=== PATIENT | male | born 1980 | race Caucasian/White ===

== ENCOUNTER → 2018-03-08 14:47 | Outpatient (CLI) | payer MEDICAID, SELFPAY ==
--- NOTE | 2018-03-08 14:49 | XR_ITS ---
XR knee RT 4V Comparison: No previous History: Pain right knee. Technique: Weightbearing AP, lateral and Calles views were performed as well as oblique. Findings: No fracture nor dislocation. Bones are well mineralized. Joint spaces fairly well maintained on this weightbearing study the medial compartment is of adequate with but is slightly less height than lateral compartment. There is some scant early sharpening at the lateral margin of the lateral femoral condyle reflecting some extremely minor likely insignificant early degenerative changes Patellofemoral joint appear satisfactory on this somewhat distorted sunrise view of the may be some very slight dorsal tilt of the patella but no displacement satisfactory patellofemoral articulation. No appreciable joint effusion.. No soft tissue findings. Subtle cortical undulation at the lateral aspect of the proximal tibial shaft reflecting insertions of the intraosseous ligament between tibia and fibula. With this there is upper normal bone density at the medial aspect of proximal metaphysis of tibia but with no significant appearing findings here. Impression: Right knee intact No fracture nor dislocation. No joint effusion Minor comments intact.
== END ==
PROVIDERS: PCP Physician Assistant; Visit Provider Physician Assistant
DX: M25.561 Pain in right knee (principal)
CPT/HCPCS: 73564

== ENCOUNTER → 2018-07-19 14:32 | Outpatient (REF) | payer MEDICAID, SELFPAY ==
[2018-07-19 19:12] LABS: Basophils % 0.5 % (0.1-2.0); Eosinophils # 0.5 K/mm3 (0.0-0.4); Eosinophils % 6.1 % (0.1-12.0); Hematocrit 42.7 % (42.0-52.0); Hemoglobin 14.3 g/dL (14.1-18.0); Lymphocytes # 2.3 K/mm3 (0.7-4.5); Lymphocytes % 29.8 K/mm3 (10-50); Mean Corpuscular HGB Conc 33.5 g/dL (31.8-35.4); Mean Corpuscular Hemoglobin 31.8 pg (27.0-31.2); Mean Corpuscular Volume 94.9 fl (80-94); Mean Platelet Volume 8.5 fl (7.4-10.4); Monocytes # 0.3 K/mm3 (0.1-1.0); Monocytes % 4.5 % (1.7-9.3); Neutrophils # 4.4 K/mm3 (1.8-7.8); Neutrophils % 59.1 % (37.0-80.0); Platelet Count 239 K/mm3 (142-424); Red Cell Distribution Width 14.3 % (11.5-17.5); White Blood Count 7.5 K/mm3 (4.8-10.8)
[2018-07-19 19:33] LABS: Alanine Aminotransferase 17 U/L (12-78); Albumin Level 3.6 gm/dL (3.4-5.0); Alkaline Phosphatase 70 U/L (46-116); Anion Gap 11.7 mEq/L (5-15); Aspartate Amino Transferase 19 U/L (15-37); Bilirubin,Total 0.3 mg/dL (0.2-1.0); Blood Urea Nitrogen 9 mg/dL (7-18); Calcium 8.7 mg/dL (8.5-10.1); Carbon Dioxide 29 mmol/L (21.0-32.0); Chloride 107 mmol/L (98-107); Chol/HDL Ratio 3.5 (1-3.5); Cholesterol 111 mg/dL (140-200); Estimated Glomerular Filt Rate 93 ml/min (>60); GFR (African American) 113 ML/MIN (>60); Globulin 3.5 gm/dl (1.3-3.2); Glucose 104 mg/dL (74-106); HDL Cholesterol 32 mg/dL (27-67); LDL Cholesterol 31 mg/dL (0-130); Potassium 3.7 mmoL/L (3.5-5.1); Sodium 144 mmol/L (136-145); T4 (Thyroxine) 8.5 ug/dl (4.7-13.3); Thyroid Stimulating Hormone 0.79 uIU/ml (0.358-3.740); Total Protein,Serum 7.1 gm/dL (6.4-8.2); Triglycerides 238 mg/dL (30-200); VLDL Cholesterol 48 mg/dL (0-40)
[2018-07-19 19:43] LABS: Hemoglobin A1C 5.8 % (0.0-7.0)
[2018-07-21 12:41] LABS: Vitamin D 25 Hydroxy 20.9 ng/mL (30.0-100.0)
== END ==
LOC: LAB 14:32
PROVIDERS: Visit Provider Physician Assistant
DX: R73.09 Other abnormal glucose (principal)
CPT/HCPCS: 80053; 80061; 82652; 83036; 84436; 84443; 85025

== ENCOUNTER → 2020-09-10 18:02 | Outpatient (CLI) | payer MEDICAID, SELFPAY ==
[2020-09-10 19:29] LABS: Basophils % 0.2 % (0.1-2.0); Eosinophils # 0.4 K/mm3 (0.0-0.4); Eosinophils % 3.3 % (0.1-12.0); Hematocrit 48.9 % (42.0-52.0); Hemoglobin 16.4 g/dL (14.1-18.0); Lymphocytes % 19.1 % (10-50); Mean Corpuscular HGB Conc 33.5 g/dL (31.8-35.4); Mean Corpuscular Volume 95.7 fl (80-94); Mean Platelet Volume 9.4 fl (7.4-10.4); Monocytes # 0.5 K/mm3 (0.1-1.0); Monocytes % 4.7 % (1.7-9.3); Neutrophils # 7.8 K/mm3 (1.8-7.8); Neutrophils % 72.7 % (37.0-80.0); Platelet Count 232 K/mm3 (142-424); Red Cell Distribution Width 14.7 % (11.5-17.5); White Blood Count 10.7 K/mm3 (4.8-10.8)
[2020-09-10 19:39] LABS: Alanine Aminotransferase 10 U/L (12-78); Albumin Level 4.1 g/dl (3.5-5.0); Albumin/Globulin Ratio 1.3 (1.1-1.8); Alkaline Phosphatase 69 U/L (38-126); Anion Gap 12.8 mEq/L (5-15); Aspartate Amino Transferase 26 U/L (17-59); Bilirubin,Total 0.4 mg/dl (0.2-1.3); Blood Urea Nitrogen 14 mg/dl (9-20); Calcium 9.5 mg/dl (8.4-10.2); Carbon Dioxide 28 mmol/L (22.0-30.0); Chloride 102 mmol/L (98-107); Chol/HDL Ratio 4.2 (1-3.5); Cholesterol 131 mg/dl (140-200); Estimated Glomerular Filt Rate 106 ml/min (>60); GFR (African American) 128 ML/MIN (>60); Globulin 3.2 g/dL (1.3-3.2); Glucose 108 mg/dl (74-100); HDL Cholesterol 31 mg/dl (40-60); Potassium 3.8 mmoL/L (3.5-5.1); Sodium 139 mmol/L (136-145); Total Protein,Serum 7.3 g/dl (6.3-8.2); Triglycerides 189 mg/dl (30-150); VLDL Cholesterol 38 mg/dL (0-40)
[2020-09-10 19:51] LABS: Direct LDL Cholesterol 74.07 mg/dL (100-129)
[2020-09-10 19:57] LABS: T4 (Thyroxine) 8.4 ug/dl (5.53-11.0)
[2020-09-10 20:10] LABS: Thyroid Stimulating Hormone 0.61 uIU/mL (0.465-4.68)
[2020-09-10 20:54] LABS: Vitamin B12 > 1000 pg/mL (239-931)
[2020-09-10 21:27] LABS: Hemoglobin A1C 5.3 % (4.0-6.0)
== END ==
PROVIDERS: Visit Provider Physician Assistant
DX: G62.9 Polyneuropathy, unspecified (principal); I10 Essential (primary) hypertension; E53.8 Deficiency of other specified B group vitamins; R35.8 Other polyuria; Z79.899 Other long term (current) drug therapy
CPT/HCPCS: 80053; 80061; 82607; 83036; 84436; 84443; 85025

== ENCOUNTER → 2021-12-19 16:00 | Outpatient (CLI) | payer MEDICAID, SELFPAY ==
[2021-12-19 21:50] LABS: Phencyclidine Screen,Urine Negative ng/ml (<25)
[2021-12-19 21:57] LABS: Amphetamine/Metha Screen,Urine Negative ng/ml (<1000); Barbiturates Screen,Urine Negative ng/ml (<200)
[2021-12-19 21:58] LABS: Benzodiazepines Screen,Urine Negative ng/ml (<200)
[2021-12-19 21:59] LABS: Cannabinoid Screen,Urine Negative ng/ml (<50)
[2021-12-19 22:01] LABS: Methadone Screen,Urine Negative ng/ml (<300)
[2021-12-19 22:02] LABS: Opiate Screen,Urine Negative ng/ml (<300)
[2021-12-19 22:03] LABS: Cocaine Screen,Urine Negative ng/ml (<300)
== END ==
PROVIDERS: Visit Provider Nurse Practitioner Family
DX: Z79.899 Other long term (current) drug therapy (principal)
CPT/HCPCS: 80305

== ENCOUNTER 2022-06-15 17:44 | Emergency (ER) | payer MEDICAID, SELFPAY ==
[2022-06-15 18:40] VITALS: BP 168/104; PULSE 85; RESP 19; TEMP 36.7; O2SAT 97; BMI 52.9
--- NOTE | 2022-06-15 19:07 | HMH.EDUTC ---
[facility] Disposition Clinical Impression: Sinusitis Qualifiers: Sinusitis location: unspecified location Chronicity: unspecified Qualified Code(s): J32.9 - Chronic sinusitis, unspecified Disposition: Home, Self-Care Condition on Discharge: Good Instructions: Sinusitis, DI for Sinusitis, Prednisone Additional Instructions: *Monitor Temp, Over the counter Motrin or Tylenol as directed/as needed Tylenol every 4 hours and Motrin every 6 hours (as long as your family doctor has told you that you can take it) for fever or pain. and straight to ER if unable to lower temp less than 101.0 after medication given *Warm salt water gargles may help to soothe the throat *Throat Lozenges *Warm fluids like tea with honey may help to soothe the throat *Sleep elevated *Humidifier/Vaporizer Take medication as prescribed Follow up IMMEDIATELY for new or worsening symptoms or no Noticeable improvement over the next 48-72 hours. 911 for difficulty breathing or swallowing Prescriptions: Amoxicillin/Potassium Clav [Amox-Clav 875-125 mg Tablet] 1 tab PO BID #14 tab Transmission Status: Received by [facility] predniSONE [Prednisone 20mg Tab] 20 mg PO BID 5 Days #10 tab Transmission Status: [facility] Referrals: Barbara Franklin PA [Primary Care Provider] - As needed Time of Disposition: 19:20 Medical Decision Making - Alejandro Inquiry Pt receiving controlled substance: No Alejandro was queried for this patient: No Vital Signs: 06/15/22 18:40 06/15/22 19:34 Temperature 98.1 F 98.1 F Temperature Source Oral Pulse Rate 85 Pulse Rate [Right Brachial] 85 Respiratory Rate 19 19 Blood Pressure 168/104 H Blood Pressure [Right Arm] 168/104 H Blood Pressure Mean [Right Arm] 125 Blood Pressure Source [Right Arm] Automatic Cuff Blood Pressure Position [Right Arm] Sitting 02 Sat by Pulse Oximetry 97 Oxygen Delivery Method Room Air Orders (Tests/Meds): ED MEDICATIONS Discontinued Medications Generic Name Dose Route Start Last Admin Trade Name Freq PRN Reason Stop Dose Admin Amoxicillin/Clavulanate Potassium 1 each 06/15/22 19:17 06/15/22 19:31 Amoxicillin/Pot Clavulan 500mg Tablet PO 06/15/22 19:18 1 each ONCE ONE Administration Methylprednisolone Sodium Succinate 125 mg 06/15/22 19:17 06/15/22 19:31 Methylprednisolone Sod Succ 125mg Vial IM 06/15/22 19:18 125 mg ONCE ONE Administration [facility] HPI - General Stated complaint: earache,larry Time Seen by Provider: 06/15/22 19:07 Mode of Arrival: Ambulatory Source of Information: Patient Limitations: No Limitations Description of Symptoms (Recalled from Triage Doc. by RN): PATIENT C/O CONGESTION AND EAR PAIN X 2 DAYS HEENT Symptoms (Recalled from RN notes): Yes Resp Symptoms (Recalled from RN notes): No Skin Symptoms (Recalled from RN notes): No MS Symptoms (Recalled from RN notes): No Functional Status (Recalled from RN notes): WNL - History of Present Illness Provider Complaint: Patient states that he has been having sinus pain and pressure and pain and pressure in both ears for about week or more and keeps getting worse States that today pressure was behind his eyes and hurting worse States that he is suppose to be seeing ENT for nasal polyps and thinks they are inflammed causing him sinus infection - Related Data Home Medications Medication Instructions Recorded Confirmed epinephrine 0.3 mg/0.3 mL 0.3 ml IM PRN each 09/19/21 03/20/22 injection, auto-injector azithromycin 250 mg tablet 250 mg PO tab 03/20/22 03/20/22 Previous Rx's Medication Instructions Recorded azelastine 0.05 % eye drops 1 drp OPHTHALMIC BID #6 ml 01/22/22 fluticasone propionate 50 See Rx Instructions .ROUTE 01/22/22 mcg/actuation nasal .COMPLEX #32 gram spray,suspension montelukast 10 mg tablet 10 mg PO HS #90 tab 01/22/22 omeprazole 40 mg capsule,delayed 40 mg PO DAILY #90 cap 01/22/22 release albuterol
[2022-06-15 19:34] VITALS: BP 168/104; PULSE 85; RESP 19; TEMP 36.7; O2SAT 97
== END 2022-06-15 19:51 | disposition home or self-care (01) ==
PROVIDERS: Emergency Provider Nurse Practitioner; PCP Physician Assistant
DX: J32.9 Chronic sinusitis, unspecified (principal)
CPT/HCPCS: 99212; G0463

== ENCOUNTER → 2022-06-25 19:07 | Outpatient (CLI) | payer MEDICAID, SELFPAY ==
[2022-06-25 15:19] LABS: Basophils # 0.1 K/mm3 (0-0.2); Basophils % 0.6 % (0.1-2.0); Eosinophils # 0.4 K/mm3 (0.0-0.4); Eosinophils % 4.7 % (0.1-12.0); Hematocrit 46.9 % (42.0-52.0); Hemoglobin 14.4 g/dL (14.1-18.0); Lymphocytes # 2.1 K/mm3 (0.7-4.5); Mean Corpuscular HGB Conc 30.8 g/dL (31.8-35.4); Mean Corpuscular Hemoglobin 31.7 pg (27.0-31.2); Mean Platelet Volume 9.2 fl (7.4-10.4); Monocytes # 0.5 K/mm3 (0.1-1.0); Monocytes % 6.1 % (1.7-9.3); Neutrophils # 5.9 K/mm3 (1.8-7.8); Neutrophils % 65.7 % (37.0-80.0); Platelet Count 204 K/mm3 (142-424); Red Blood Count 4.55 M/mm3 (4.60-6.20); Red Cell Distribution Width 14.7 % (11.5-17.5)
[2022-06-25 15:27] LABS: Alanine Aminotransferase 15 U/L (12-78); Albumin Level 3.5 g/dl (3.5-5.0); Albumin/Globulin Ratio 1.3 (1.1-1.8); Alkaline Phosphatase 65 U/L (38-126); Anion Gap 7.7 mEq/L (5-15); Aspartate Amino Transferase 25 U/L (17-59); Blood Urea Nitrogen 6 mg/dl (9-20); Calcium 8.3 mg/dl (8.4-10.2); Carbon Dioxide 28 mmol/L (22.0-30.0); Chloride 106 mmol/L (98-107); Chol/HDL Ratio 3.5 (1-3.5); Cholesterol 109 mg/dl (140-200); Estimated Glomerular Filt Rate 105 ml/min (>60); GFR (African American) 127 ML/MIN (>60); Globulin 2.7 g/dL (1.3-3.2); Glucose 102 mg/dl (74-100); HDL Cholesterol 31 mg/dl (40-60); Potassium 3.7 mmoL/L (3.5-5.1); Sodium 138 mmol/L (136-145); Total Protein,Serum 6.2 g/dl (6.3-8.2); Triglycerides 120 mg/dl (30-150); VLDL Cholesterol 24 mg/dL (0-40)
[2022-06-25 15:32] LABS: Bilirubin,Total 0.1 mg/dl (0.2-1.3)
[2022-06-25 15:45] LABS: Hemoglobin A1C 5.4 % (4.0-6.0)
[2022-06-27 08:22] LABS: Direct LDL Cholesterol 54 mg/dL (100-129)
== END ==
PROVIDERS: PCP Nurse Practitioner Family; Visit Provider Nurse Practitioner Family
DX: I10 Essential (primary) hypertension (principal); E78.5 Hyperlipidemia, unspecified; R53.83 Other fatigue; E11.9 Type 2 diabetes mellitus without complications; Z79.84 Long term (current) use of oral hypoglycemic drugs
CPT/HCPCS: 80053; 80061; 83036; 84443; 85025

== ENCOUNTER 2022-09-07 16:48 | Emergency (ER) | payer MEDICAID, SELFPAY ==
[2022-09-07 17:20] VITALS: BP 158/95; PULSE 94; RESP 18; TEMP 36.9; O2SAT 99; BMI 55.7
--- NOTE | 2022-09-07 18:00 | EXP.UTC ---
Discharge Plan Disposition Patient Disposition: Home, Self-Care Prescriptions Prescriptions: No Action epinephrine 0.3 mg/0.3 mL auto-injector 0.3 ml IM PRN Label Comments: USE DIRECTED omeprazole 40 mg capsule,delayed release(DR/EC) 40 mg PO DAILY Qty: 90 3RF Rx Instructions: swallow whole; do not crush, chew, dissolve, cut, break montelukast [Singulair] 10 mg tablet 10 mg PO HS Qty: 90 3RF fluticasone propionate 50 mcg/actuation spray,suspension See Rx Instructions .ROUTE .COMPLEX Qty: 32 0RF Dose Instruction: SPRAY 1 SPRAY IN EACH NOSTRIL ONCE DAILY Rx Instructions: SPRAY 1 SPRAY IN EACH NOSTRIL ONCE DAILY amlodipine-benazepril [Lotrel] 10-40 mg capsule 1 cap PO DAILY Qty: 90 3RF gabapentin 300 mg capsule 300 mg PO TID 30 Days Qty: 90 2RF amoxicillin 500 mg capsule 500 mg PO TID Label Comments: TAKE 1 CAPSULE BY MOUTH EVERY 8 HOURS FOR 7 DAYS cefuroxime axetil 500 mg tablet 500 mg PO BID Qty: 20 0RF prednisone 20 mg tablet 20 mg PO BID Qty: 10 0RF Rx Instructions: administer with food or milk pseudoephedrine HCl [Sudafed 12 Hour] 120 mg tablet extended release 120 mg PO Q12H Qty: 20 0RF polyethylene glycol 3350 [ClearLax] 17 gram/dose powder See Rx Instructions .ROUTE .COMPLEX Qty: 510 1RF Dose Instruction: MIX 17 GRAMS OF POWDER IN 8 OUNCES OF WATER OR JUICE AND DRINK ONCE DAILY Rx Instructions: MIX 17 GRAMS OF POWDER IN 8 OUNCES OF WATER OR JUICE AND DRINK ONCE DAILY amitriptyline 10 mg tablet See Rx Instructions .ROUTE .COMPLEX Qty: 90 3RF Dose Instruction: TAKE 1 TABLET BY MOUTH AT BEDTIME Rx Instructions: TAKE 1 TABLET BY MOUTH AT BEDTIME azelastine 205.5 mcg (0.15 %) spray,non-aerosol See Rx Instructions .ROUTE .COMPLEX Qty: 30 5RF Dose Instruction: USE 1 SPRAY IN EACH NOSTRIL TWICE DAILY Rx Instructions: USE 1 SPRAY IN EACH NOSTRIL TWICE DAILY loratadine [Allergy Relief (loratadine)] 10 mg tablet See Rx Instructions .ROUTE .COMPLEX Qty: 90 3RF Dose Instruction: TAKE 1 TABLET BY MOUTH ONCE DAILY Rx Instructions: TAKE 1 TABLET BY MOUTH ONCE DAILY naproxen 500 mg tablet 500 mg PO BID PRN (Reason: pain) Qty: 60 0RF albuterol sulfate [ProAir HFA] 90 mcg/actuation HFA aerosol inhaler See Rx Instructions .ROUTE .COMPLEX Qty: 25.5 0RF Dose Instruction: INHALE 2 PUFFS BY MOUTH EVERY 4 TO 6 HOURS NEEDED FOR SHORTNESS OF BREATH OR WHEEZING Rx Instructions: INHALE 2 PUFFS BY MOUTH EVERY 4 TO 6 HOURS NEEDED FOR SHORTNESS OF BREATH OR WHEEZING Ozempic 0.25 mg or 0.5 mg(2 mg/1.5 mL) pen injector See Rx Instructions .ROUTE .COMPLEX Qty: 1.5 2RF Dose Instruction: INJECT 0.5MG UNDER THE SKIN ONCE WEEKLY Rx Instructions: INJECT 0.5MG UNDER THE SKIN ONCE WEEKLY Referrals Follow up/Referrals: Barbara Franklin PA [Primary Care Provider] - See instructions Activity Restrictions/Add. Instructions Additional Instructions/Restrictions: continue antibiotic, patient to take as ordered for a full length of time even if you feel better. Sinus infections do not get better overnight. It may take 2-3 days to notice much improvement so be sure to use conservative measures as discussed for symptoms. Flonase 1 spray each nostril daily to help with nasal congestion, sinus and ear pressure/information Increase fluids Humidifier/vaporizer as needed Tylenol and ibuprofen as needed for fever or pain. If symptoms do not improve or get worse return or be seen in the ER Follow-up with primary care this week Clinical Impressions Clinical Impression: Sinusitis Instructions Patient Instructions: DI for Sinusitis, Sinusitis Discharge ED Provider: Edith ([facility])Elidia [facility] [place] HPI General Stated complaint: larry, SUNSHINE Mode of Arrival: Ambulatory Source of Information: Patient Limitations: No Limitations Time Seen by
[2022-09-07 18:15] VITALS: BP 158/95; PULSE 94; RESP 18; TEMP 36.9; O2SAT 99
== END 2022-09-07 18:18 | disposition home or self-care (01) ==
PROVIDERS: Emergency Provider Nurse Practitioner Family; PCP Physician Assistant
DX: J32.9 Chronic sinusitis, unspecified (principal)
CPT/HCPCS: 96372; 99212; G0463

== ENCOUNTER → 2022-12-30 15:25 | Outpatient (CLI) | payer MEDICAID, SELFPAY ==
[2022-12-30 15:28] LABS: Basophils # 0.1 K/mm3 (0-0.2); Basophils % 0.7 % (0.1-2.0); Eosinophils # 0.5 K/mm3 (0.0-0.4); Eosinophils % 4.1 % (0.1-12.0); Hematocrit 42.4 % (42.0-52.0); Hemoglobin 14.3 g/dL (14.1-18.0); Mean Corpuscular HGB Conc 33.7 g/dL (31.8-35.4); Mean Corpuscular Hemoglobin 32.3 pg (27.0-31.2); Mean Corpuscular Volume 95.8 fl (80-94); Mean Platelet Volume 9.5 fl (7.4-10.4); Monocytes # 0.6 K/mm3 (0.1-1.0); Monocytes % 4.9 % (1.7-9.3); Neutrophils # 8.1 K/mm3 (1.8-7.8); Neutrophils % 72.3 % (37.0-80.0); Platelet Count 225 K/mm3 (142-424); Red Blood Count 4.42 M/mm3 (4.60-6.20); Red Cell Distribution Width 14.5 % (11.5-17.5); White Blood Count 11.1 K/mm3 (4.8-10.8)
[2022-12-30 16:04] LABS: Alanine Aminotransferase 15 U/L (12-78); Albumin Level 3.8 g/dl (3.5-5.0); Albumin/Globulin Ratio 1.3 (1.1-1.8); Alkaline Phosphatase 58 U/L (38-126); Anion Gap 5.6 mEq/L (5-15); Aspartate Amino Transferase 25 U/L (17-59); Bilirubin,Total 0.5 mg/dl (0.2-1.3); Blood Urea Nitrogen 10 mg/dl (9-20); Calcium 8.4 mg/dl (8.4-10.2); Carbon Dioxide 26 mmol/L (22.0-30.0); Chloride 109 mmol/L (98-107); Estimated Glomerular Filt Rate 105 ml/min (>60); GFR (African American) 127 ML/MIN (>60); Globulin 2.9 g/dL (1.3-3.2); Glucose 125 mg/dl (74-100); Potassium 3.6 mmoL/L (3.5-5.1); Sodium 137 mmol/L (136-145); Total Protein,Serum 6.7 g/dl (6.3-8.2)
[2022-12-30 16:10] LABS: C-Reactive Protein 7.3 mg/L (0-4)
[2022-12-30 16:27] LABS: 25-OH Vitamin D, Total 12.8 ng/mL (30-100)
[2022-12-30 16:38] LABS: Thyroid Stimulating Hormone 0.29 uIU/mL (0.465-4.68)
[2022-12-30 16:57] LABS: Vitamin B12 324 pg/mL (239-931)
[2022-12-30 18:10] LABS: Erythrocyte Sedimentation Rate 25 mm/hr (0-15)
[2022-12-30 21:13] LABS: Hemoglobin A1C 5.3 % (4.0-6.0)
[2023-01-01 07:32] LABS: RA Latex Turbid. <10.0 IU/mL (<14.0)
[2023-01-01 14:14] LABS: Anti-Centromere B Antibodies <0.2 AI (0.0-0.9); Anti-Cyclic Citrullinated Pept 4 units (0-19); Anti-DNA (DS) Ab Qn <1 IU/mL (0-9); Anti-Jo-1 <0.2 AI (0.0-0.9); Anti-Smith Antibody <0.2 AI (0.0-0.9); Antichromatin Antibodies <0.2 AI (0.0-0.9); Antiscleroderma-70 Antibodies <0.2 AI (0.0-0.9); RNP Antibodies 0.2 AI (0.0-0.9); Sjogren's Anti-SS-A 0.2 AI (0.0-0.9); Sjogren's Anti-SS-B <0.2 AI (0.0-0.9)
== END ==
PROVIDERS: PCP Physician Assistant; Visit Provider Physician Assistant
DX: M25.50 Pain in unspecified joint (principal); R73.09 Other abnormal glucose; E55.9 Vitamin D deficiency, unspecified
CPT/HCPCS: 80053; 82306; 82607; 83036; 84443; 85025; 85651; 86140; 86200; 86225; 86235; 86431

== ENCOUNTER → 2023-08-20 08:27 | Outpatient (CLI) | payer MEDICAID, SELFPAY ==
--- NOTE | 2023-08-20 08:31 | XR_ITS ---
FINAL REPORT CLINICAL HISTORY: lt knee pain COMPARISON: None FINDINGS: Three views of the left knee reveal no evidence of fracture or dislocation. The bony alignment is normal. There is mild degenerative change present, as well as mild narrowing of the medial compartment of the knee. There is no evidence of joint effusion. No localized soft tissue abnormality is seen. IMPRESSION: Mild degenerative change with mild narrowing of the medial compartment. No acute bony abnormality identified. Reviewed, Interpreted and Dictated by Antonino Marquez III, MD Transcribed by Kathrin Colvin Authenticated and . [facility]
--- NOTE | 2023-08-20 08:31 | XR_ITS ---
FINAL REPORT CLINICAL HISTORY: Rt Knee pain COMPARISON: None FINDINGS: Three views of the right knee reveal no evidence of fracture or dislocation. The bony alignment is normal. There is mild degenerative change with mild narrowing of the medial compartment of the knee. There is no evidence of joint effusion. No localized soft tissue abnormality is identified. IMPRESSION: Mild degenerative change with mild narrowing of the medial compartment of the knee. No acute bony abnormality identified. Reviewed, Interpreted and Dictated by Antonino Marquez III, MD Transcribed by Kathrin Colvin Authenticated and [facility]
== END ==
PROVIDERS: PCP Physician Assistant; Visit Provider Orthopaedic Surgery
DX: M25.561 Pain in right knee (principal); M25.562 Pain in left knee
CPT/HCPCS: 73562

== ENCOUNTER → 2023-10-13 15:59 | Outpatient (CLI) | payer MEDICAID, SELFPAY ==
--- NOTE | 2023-10-13 16:00 | MR_ITS ---
FINAL REPORT CLINICAL HISTORY: lt knee pain. KNEE INSTABILITY COMPARISON: None FINDINGS: Multiplanar MR imaging of the left knee was performed without contrast. The lateral menisci is intact without evidence of meniscal tear. There is medial subluxation of the body of the medial meniscus without a discrete tear visualized. The anterior and posterior cruciate ligaments are intact. The medial collateral ligament and lateral ligamentous complex are intact. Patellar tendinitis is identified. There is no evidence of fracture. There is moderate medial compartment osteoarthritis with moderate chondromalacia. A moderate joint effusion is seen. The musculature is intact. A small popliteal cyst is present. 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 A moderate joint effusion is present as well. Medial subluxation of the body of the medial meniscus without a discrete tear. Patellar tendinitis. Reviewed, Interpreted and Dictated by Antonino Marquez III, MD Transcribed by Kathrin Colvin Authenticated and . [facility]
== END ==
PROVIDERS: PCP Physician Assistant; Visit Provider Orthopaedic Surgery
DX: M17.12 Unilateral primary osteoarthritis, left knee (principal)
CPT/HCPCS: 73721

== ENCOUNTER 2023-11-22 15:44 | Emergency (ER) | payer MEDICAID, SELFPAY ==
[2023-11-22 16:00] VITALS: BP 138/81; PULSE 100; RESP 18; TEMP 37.1; O2SAT 97; BMI 57.6
--- NOTE | 2023-11-22 16:04 | ED_ITS ---
Discharge Plan Prescriptions Prescriptions: No Action epinephrine 0.3 mg/0.3 mL auto-injector 0.3 ml IM PRN Patient Comments: USE DIRECTED diclofenac sodium 75 mg tablet,delayed release (DR/EC) 75 mg PO BID Qty: 60 2RF loratadine [Allergy Relief (loratadine)] 10 mg tablet See Rx Instructions .ROUTE .COMPLEX Qty: 90 3RF Dose Instruction: TAKE 1 TABLET BY MOUTH ONCE DAILY Rx Instructions: TAKE 1 TABLET BY MOUTH ONCE DAILY ergocalciferol (vitamin D2) 1,250 mcg (50,000 unit) capsule 1,250 mcg PO WEEKLY Qty: 14 3RF cholecalciferol (vitamin D3) 50 mcg (2,000 unit) capsule 50 mcg PO DAILY Qty: 90 3RF albuterol sulfate [Ventolin HFA] 90 mcg/actuation HFA aerosol inhaler See Rx Instructions .ROUTE .COMPLEX Qty: 27 2RF Dose Instruction: INHALE 2 PUFFS BY MOUTH EVERY 4 TO 6 HOURS NEEDED FOR SHORTNESS OF BREATH OR WHEEZING Rx Instructions: INHALE 2 PUFFS BY MOUTH EVERY 4 TO 6 HOURS NEEDED FOR SHORTNESS OF BREATH OR WHEEZING fluticasone propionate 50 mcg/actuation spray,suspension See Rx Instructions .ROUTE .COMPLEX Qty: 32 2RF Dose Instruction: INSTILL 1 SPRAY IN EACH NOSTRIL ONCE DAILY Rx Instructions: INSTILL 1 SPRAY IN EACH NOSTRIL ONCE DAILY benazepril 40 mg tablet See Rx Instructions .ROUTE .COMPLEX Qty: 30 1RF Dose Instruction: TAKE 1 TABLET BY MOUTH ONCE DAILY Rx Instructions: TAKE 1 TABLET BY MOUTH ONCE DAILY amitriptyline 25 mg tablet 25 mg PO DAILY Qty: 90 1RF azelastine 137 mcg (0.1 %) aerosol,spray See Rx Instructions .ROUTE .COMPLEX Qty: 30 0RF Dose Instruction: INSTILL 1 SPRAY IN EACH NOSTRIL TWICE A DAY. Rx Instructions: INSTILL 1 SPRAY IN EACH NOSTRIL TWICE A DAY. Ozempic 0.25 mg or 0.5 mg (2 mg/3 mL) pen injector 0.5 mg SQ WEEKLY Qty: 3 3RF hydrochlorothiazide 25 mg tablet See Rx Instructions .ROUTE .COMPLEX Qty: 90 0RF Dose Instruction: TAKE 1 TABLET BY MOUTH EVERY MORNING Rx Instructions: TAKE 1 TABLET BY MOUTH EVERY MORNING omeprazole 40 mg capsule,delayed release(DR/EC) See Rx Instructions .ROUTE .COMPLEX Qty: 90 1RF Dose Instruction: TAKE 1 CAPSULE BY MOUTH ONCE DAILY Rx Instructions: TAKE 1 CAPSULE BY MOUTH ONCE DAILY montelukast 10 mg tablet See Rx Instructions .ROUTE .COMPLEX Qty: 90 1RF Dose Instruction: TAKE 1 TABLET BY MOUTH AT BEDTIME Rx Instructions: TAKE 1 TABLET BY MOUTH AT BEDTIME Ubrelvy 100 mg tablet 100 mg PO ONCE PRN (Reason: migraine) Qty: 16 0RF gabapentin 300 mg capsule 300 mg PO QID 30 Days Qty: 120 2RF Referrals Follow up/Referrals: Barbara Franklin PA [Primary Care Provider] - See instructions Discharge ED Provider: Geoffrey Ordonez [facility] [place] HPI General Stated complaint: ear ache, larry, SUNSHINE, body ache Time Seen by Provider: 11/22/23 16:04 History of Present Illness Provider Complaint: He states that for the past 1 week he has had worsening sinus congestion, sinus pressure, bilateral ear pain, drainage and a cough. He denies significant chest congestion. He denies fever/chills/body aches. Related Data Home Medications Medication Instructions Recorded Confirmed epinephrine 0.3 mg/0.3 mL 0.3 ml IM PRN 09/19/21 10/22/23 injection, auto-injector Previous Rx's Medication Instructions Recorded cholecalciferol (vitamin D3) 50 50 mcg PO DAILY #90 caps 01/01/23 mcg (2,000 unit) capsule ergocalciferol (vitamin D2) 1,250 1,250 mcg PO WEEKLY #14 caps 01/01/23 mcg (50,000 unit) capsule loratadine 10 mg tablet (Allergy See Rx Instructions .Route 02/17/23 Relief (loratadine)) .COMPLEX #90 tabs albuterol sulfate 90 mcg/actuation See Rx Instructions .Route 06/02/23 aerosol inhaler (Ventolin HFA) .COMPLEX #27 grams fluticasone propionate 50 See Rx Instructions .Route 06/02/23 mcg/actuation nasal .COMPLEX #32 grams spray,suspension benazepril 40 mg tablet See Rx Instructions .Route 06/22/23 .COMPLEX #30 tabs amitriptyline 25 mg tablet 25 mg PO DAILY #90 tabs 07/22/23 azelastine 137 mcg (0.1 %) nasal See Rx Instructions .Route 07/29/23 spray aerosol .COMPLEX #30 mL diclofenac sodium 75 mg 75 mg PO BID #60 tabs 09/07/23 tablet,delayed release hydrochlorothiazide 25 mg tablet See Rx Instructions .Route 09/14/23 .COMPLEX #90 tabs semaglutide 0.25 mg or 0.5 mg (2 0.5 mg (0.736 mL) SQ WEEKLY #3 mL 09/14/23 mg/3 mL) subcutaneous pen injector (Ozempic) montelukast 10 mg tablet See Rx Instructions .Route 09/24/23 .COMPLEX #90 tabs omeprazole 40 mg capsule,delayed See Rx Instructions .Route 09/24/23 release .COMPLEX #90 caps ubrogepant 100 mg tablet (Ubrelvy) 100 mg PO ONCE PRN migraine #16 09/28/23 tabs gabapentin 300 mg capsule 300 mg PO QID 30 days #120 caps 10/28/23 Allergies Allergy/AdvReac Type Severity Reaction Status Date / Time No Known Allergies Allergy Verified 11/22/23 16:11 [facility] Disclaimer: The information contained in this section may have been updated after the musa ent was seen, as this information can be updated by other users. Medical History Anxiety Cardiac arrhythmia Depression Hypertension Knee pain, right Neuropathy MELE (obstructive sleep apnea) Vitamin B12 deficiency Family History Father Cancer Social History Smoking Status: Former smoker tobacco type: cigarettes packs per day: 1 alcohol intake: never substance use type: denies use current occupational status: other Travel in the last 8 weeks: None current occupation: None ROS Obtained: Yes All systems reviewed & no additional complaints except as documented Constitutional Constitutional: Reports poor appetite Eyes Eyes: Reports system reviewed and no additional complaints, except as documented ENT Ears, Nose, Mouth, and Throat: Reports as per HPI Cardiovascular Cardiovascular: Reports system reviewed and no additional complaints, except as documented and Denies chest pain Respiratory Respiratory: Denies shortness of breath, Denies chest congestion, Reports cough, Denies stridor and Denies wheezing Gastrointestinal Gastrointestingal: Reports system reviewed and no additional complaints, except as documented; Denies abdominal pain, diarrhea or vomiting Musculoskeletal Musculoskeletal: Reports system reviewed and no additional complaints, except as documented and Denies arthralgias Integumentary/Breasts Skin/Breast: Reports system reviewed and no additional complaints, except as documented and Denies rash Neurologic Neurologic: Denies paresthesias Allergic/Immunologic Allergic/Immunologic: Denies wheezing Physical Exam General General appearance: alert and in no apparent distress Eye Eye exam: Present normal appearance, PERRL and EOMI ENT ENT exam: Present mucous membranes moist and normal external ear exam Expanded ENT Exam External ear exam: Present normal external inspection TM/Canal exam: Bilateral TM: erythema and bulging Nose exam: Absent sinus tenderness Nasal speculum exam: Bilateral: normal Mouth exam: Present normal external inspection; Absent drooling Teeth exam: Present normal inspection Throat exam: Present tonsillar erythema and tonsillomegaly Neck Neck exam: Present normal inspection, full ROM and trachea midline; Absent tenderness, lymphadenopathy or thyromegaly Chest Chest inspection: Present normal inspection and symmetric chest wall rise; Absent tenderness or rash Respiratory Respiratory exam: Present normal lung sounds bilaterally; Absent respiratory distress, wheezes, stridor or accessory muscle use Cardiovascular Cardiovascular exam: Present regular rate, normal rhythm and normal heart sounds Abdominal Exam Abdominal exam: Present soft; Absent distention, tenderness, guarding, rebound or rigidity Extremities Exam Extremities exam: Present normal inspection, full ROM and normal capillary refill; Absent tenderness or calf tenderness Back Exam Back exam: Present normal inspection and full ROM; Absent tenderness Neurological Exam Neurological exam: Present alert and oriented X3 Psychiatric Psychiatric exam: Present normal affect and normal mood Skin Skin exam: Present warm, dry, intact and normal color Lymphatic Lymphatic Findings: no adenopathy Medical Decision Making Medical Records Medical records reviewed: No I reviewed the patient's medical records. Alejandro Inquiry Pt receiving controlled substance: No
[2023-11-22] MEDS: DEXAMETHASONE 4MG/ML 1ML VIAL 10 MG IM (16:31)
[2023-11-22 16:57] VITALS: BP 138/81; PULSE 100; RESP 18; TEMP 37.1; O2SAT 97
== END 2023-11-22 16:57 | disposition home or self-care (01) ==
PROVIDERS: Emergency Provider Nurse Practitioner Family; PCP Physician Assistant
DX: J01.90 Acute sinusitis, unspecified (principal); H66.93 Otitis media, unspecified, bilateral; R05.9 Cough, unspecified; R09.81 Nasal congestion; R51.9 Headache, unspecified; I10 Essential (primary) hypertension; Z87.891 Personal history of nicotine dependence
CPT/HCPCS: 96372; 99212; 99214; G0463

== ENCOUNTER 2024-01-29 09:36 | Outpatient (POV) | payer MEDICAID, SELFPAY ==
[2024-01-29 09:42] VITALS: BP 126/83; PULSE 68; RESP 18; TEMP 36.7; O2SAT 97; BMI 58.1
--- NOTE | 2024-01-29 11:37 | EXP.PAIN.OV ---
HPI Data of Consult Patient: new to practice Consult date: 01/29/24 Requesting Physician: Lakisha Arenas APRN Primary Care Provider: ANNITA Thomas Consult Narrative Reason for consult: Bilateral knee pain History of present illness: Mr. West is a 44 year old male who presents today as a new patient. He is a referral from Barbara Franklin's office. today he rates his pain a 5 out of 10. He states the pain is all in his bilateral knees and that this has been going on for over a year. He states it is unrelated to any specific trauma or injury and denies ever having prior knee surgery. He does describe it as an intense sensation and states that the right leg is more of a dull throbbing that is constant and the left constantly gives out causing him to stumble or possibly fall. Patient has tried [id number] medications along with heat and ice and gabapentin with minimal relief. Patient denies any prior injection history. He has had physical therapy and is currently still in this. He is interested in any help we may be able to provide. He is prescribed gabapentin 300 mg 4 times a day from his primary care provider and has had [place] in the past. His Alejandro has been reviewed and is appropriate. CC: Lakisha Arenas APRN [facility] Disclaimer: The information contained in this section may have been updated after the patient was seen, as this information can be updated by other users. Medical History MELE (obstructive sleep apnea) Anxiety Depression Hypertension Cardiac arrhythmia Knee pain, right Neuropathy Vitamin B12 deficiency Family History Father Cancer Social History Smoking Status: Former smoker tobacco type: cigarettes packs per day: 1 alcohol intake: never substance use type: denies use current occupational status: other Travel in the last 8 weeks: None current occupation: None Review of Systems Review of Systems Review of systems:: pertinent systems reviewed and negative unless documented below Review of systems (narrative): Review of Systems: General: No recent weight changes, no fever, no sleep disturbances Respiratory: No cough, no shortness of air, no recurring pulmonary infections Cardiovascular/peripheral vascular: No chest pain, no palpitations, no edema, no shortness of breath Gastrointestinal: No new onset incontinence, normal bowel movements reported Genitourinary: No new onset incontinence Musculoskeletal: Bilateral knee pain Psychiatric: [Normal mood/affect] Neurological: [Denies weakness in extremities], [denies balance issues] Meds Home Medications and Allergies Home Medications Medication Instructions Recorded Confirmed Type epinephrine 0.3 mg/0.3 mL 0.3 ml IM PRN 09/19/21 01/13/24 History injection, auto-injector cholecalciferol (vitamin D3) 50 50 mcg PO DAILY #90 caps 01/01/23 01/13/24 Rx mcg (2,000 unit) capsule loratadine 10 mg tablet (Allergy See Rx Instructions .Route 02/17/23 01/13/24 Rx Relief (loratadine)) .COMPLEX #90 tabs albuterol sulfate 90 mcg/actuation See Rx Instructions .Route 06/02/23 01/13/24 Rx aerosol inhaler (Ventolin HFA) .COMPLEX #27 grams fluticasone propionate 50 See Rx Instructions .Route 06/02/23 01/13/24 Rx mcg/actuation nasal .COMPLEX #32 grams spray,suspension benazepril 40 mg tablet See Rx Instructions .Route 06/22/23 01/13/24 Rx .COMPLEX #30 tabs azelastine 137 mcg (0.1 %) nasal See Rx Instructions .Route 07/29/23 01/13/24 Rx spray aerosol .COMPLEX #30 mL ergocalciferol (vitamin D2) 1,250 See Rx Instructions .Route 12/03/23 01/13/24 Rx mcg (50,000 unit) capsule .COMPLEX #10 caps montelukast 10 mg tablet See Rx Instructions .Route 12/03/23 01/13/24 Rx .COMPLEX #90 tabs omeprazole 40 mg capsule,delayed See Rx Instructions .Route 12/03/23 01/13/24 Rx release .COMPLEX #90 caps amitriptyline 25 mg tablet 25 mg PO DAILY #90 tabs 12/17/23 01/13/24 Rx polyethylene glycol 3350 17 17 g PO DAILY #238 grams 12/17/23 01/13/24 Rx gram/dose oral powder (Miralax) diclofenac sodium 75 mg 75 mg PO BID #60 tabs 01/01/24 01/13/24 Rx tablet,delayed release hydrochlorothiazide 25 mg tablet See Rx Instructions .Route 01/01/24 01/13/24 Rx .COMPLEX #90 tabs ubrogepant 100 mg tablet (Ubrelvy) 100 mg PO ONCE PRN migraine #16 01/01/24 01/13/24 Rx tabs gabapentin 300 mg capsule 300 mg PO QID 30 days #120 caps 01/13/24 01/13/24 Rx ketorolac 10 mg tablet 10 mg PO TID PRN pain 5 days #20 01/13/24 01/13/24 Rx tabs prednisone 20 mg tablet 20 mg PO DAILY #18 tabs 01/13/24 01/13/24 Rx New Prescriptions to Start Prescriptions: Allergies Allergy/AdvReac Type Severity Reaction Status Date / Time No Known Allergies Allergy Verified 01/13/24 09:20 Objective Vital signs: Temp Pulse Resp BP Pulse Ox O2 Del Method 98.0 F 68 18 126/83 97 Room Air 01/29/24 09:42 01/29/24 09:42 01/29/24 09:42 01/29/24 09:42 01/29/24 09:42 01/29/24 09:42 Narrative: Physical Exam: General: Alert and oriented x3, no acute distress, pleasant and cooperative Lungs: Respirations even and unlabored, symmetrical chest expansion Eyes: PERRL Musculoskeletal: Flexion and extension of bilateral knees somewhat guarded secondary to pain, [antalgic gait noted] Neurological: Speech clear, no gross sensory deficit Additional findings Additional findings: COMPARISON: None FINDINGS: Multiplanar MR imaging of the left knee was performed without contrast. The lateral menisci is intact without evidence of meniscal tear. There is medial subluxation of the body of the medial meniscus without a discrete tear visualized. The anterior and posterior cruciate ligaments are intact. The medial collateral ligament and lateral ligamentous complex are intact. Patellar tendinitis is identified. There is no evidence of fracture. There is moderate medial compartment osteoarthritis with moderate chondromalacia. A moderate joint effusion is seen. The musculature is intact. A small popliteal cyst is present. 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 A moderate joint effusion is present as well. Medial subluxation of the body of the medial meniscus without a discrete tear. Patellar tendinitis. Reviewed, Interpreted and Dictated by Antonino Marquez III, MD Transcribed by [place] Colvin Authenticated and M FINDINGS: Three views of the left knee reveal no evidence of fracture or dislocation. The bony alignment is normal. There is mild degenerative change present, as well as mild narrowing of the medial compartment of the knee. There is no evidence of joint effusion. No localized soft tissue abnormality is seen. IMPRESSION: Mild degenerative change with mild narrowing of the medial compartment. No acute bony abnormality identified. Reviewed, Interpreted and Dictated by Antonino Marquez III, MD Transcribed by Kathrin Colvin Authenticated and . [facility] FINDINGS: Three views of the right knee reveal no evidence of fracture or dislocation. The bony alignment is normal. There is mild degenerative change with mild narrowing of the medial compartment of the knee. There is no evidence of joint effusion. No localized soft tissue abnormality is identified. IMPRESSION: Mild degenerative change with mild narrowing of the medial compartment of the knee. No acute bony abnormality identified. Reviewed, Interpreted and Dictated by Antonino Marquez III, MD Transcribed by Kathrin Colvin Authenticated and [facility] Assessment and Plan *Assessment and plan (1) Osteoarthritis of left knee: Status: Acute Qualifiers: Osteoarthritis type: primary Qualified Code(s): M17.12 - Unilateral primary osteoarthritis, left knee Category: Medical Code(s): M17.12 - Unilateral primary osteoarthritis, left knee (2) Osteoarthritis of right knee: Status: Acute Qualifiers: Osteoarthritis type: primary Qualified Code(s): M17.11 - Unilateral primary osteoarthritis, right knee Category: Medical Code(s): M17.11 - Unilateral primary osteoarthritis, right knee (3) Bilateral knee pain: Status: Acute Qualifiers: Chronicity: chronic Qualified Code(s): M25.561 - Pain in right knee; M25.562 - Pain in left knee; G89.29 - Other chronic pain Category: Medical Code(s): M25.561 - Pain in right knee; M25.562 - Pain in left knee Plan Patient is experiencing significant pain in his bilateral knees with limited range of motion. I have discussed with patient that he may benefit from bilateral knee pain injection. Risk and benefits were discussed with the patient and he would like to proceed forward with this plan of care. Patient has tried and failed conservative therapies. I will also order the patient a compounded cream. Patient will be scheduled for bilateral knee intra-articular injection. Patient has been instructed to contact the clinic with any concerns before the next appointment. Dr. Hatch has reviewed this note and agrees with this plan of care. This note was dictated using voice recognition software and make contain errors or omissions.
== END 2024-01-29 23:59 ==
LOC: SC.PAIN 09:36
PROVIDERS: PCP Physician Assistant; Visit Provider Nurse Practitioner Family
DX: M17.0 Bilateral primary osteoarthritis of knee (principal); M25.561 Pain in right knee; M25.562 Pain in left knee; G89.29 Other chronic pain
CPT/HCPCS: 99202; G0463

== ENCOUNTER 2024-03-10 14:00 | Outpatient (RCR) | payer MEDICAID, SELFPAY ==
--- NOTE | 2024-01-27 09:50 | HMH.PTOPEV ---
PT Outpatient Evaluation Rehab PT Outpatient Evaluation Start: 01/27/24 08:42 Freq: Status: Active Protocol: Document 01/27/24 08:42 JASENTYREE (Rec: 01/27/24 09:50 ECTOR [id number]) E-signed By Lakisha Castillo, PT Outpatient Therapy Subjective History Subjective History Pt is a 44 y/o male who reports chronic L knee pain for ~1 year. Pt reports after onset of L knee pain he had to compensate with the right leg which caused the right knee to hurt as well. Pt reports bilateral knee pain is located laterally and the right knee has constant swelling. Pt reports his left knee will hyperextend while walking and has led to a couple falls, denies injuries from the fall. Pt also reports noted cracking and popping of the knees that is non-painful. Pt had a L knee MRI on 10/13/23 with imprsesion of Moderate medial compartment osteoarthritis with moderate chondromalacia. A moderate joint effusion is present as well. Medial subluxation of the body of the medial meniscus without a discrete tear. Patellar tendinitis. Pt reports pain is aggravated by sit to stand transfers, prolonged standing, and walking. Pt reports he is unable to walk at [employer] or traverse stairs due to pain. Pt reports he is taking prednisone for his LBP but has not noticed a change in knee pain with this. Medical History: Hypertension, Sleep Apnea, LBP, Neuropathy, Hernia New diagnosis of cancer in past 12 No months? Chief Complaint Pain,Clicks,Swelling,Gives out /Unstable Symptom Type Ache,Throb,Sharp,Dull Symptoms Relieved By Rest/Positioning,OTC Meds Symptoms Aggravated By Standing,Physical Activity, Walking Prior Functional Limitations None Current Functional Limitations Dressing,Standing,Squatting, Walking,Stairs Symptom Description Constant but Variable Level of pain today (0-10) 5 Pain scale - at its best (0-10) 0 Pain scale - at its worst (0-10) 10 Hip/Knee Eval Gait Observation General Gait Pattern Observation Wide Based Gait Assistive Device Assistive Devices None / NA Palpation Tenderness right Knee Palpation Overall Comment lateral joint line, patella left Knee Palpation Overall Comment lateral joint line, patella MMT right Hip Flexion Strength Grade 4 Good Hip Abduction Strength Grade 4 Good Hip Adduction Strength Grade 4 Good Hip Extension Strength Grade 4 Good Knee Extension Strength Grade 4 Good Knee Flexion Strength Grade 5 Normal left Hip Flexion Strength Grade 4 Good Hip Abduction Strength Grade 4 Good Hip Adduction Strength Grade 4 Good Hip Extension Strength Grade 4 Good Knee Extension Strength Grade 4 Good Knee Flexion Strength Grade 5 Normal ROM right Knee Extension Active Range of Motion ( 0 degrees) Knee Flexion Active Range of Motion ( 115 degrees) left Knee Extension Active Range of Motion ( 0 degrees) Knee Flexion Active Range of Motion ( 110 degrees) Effusion joint effusion knee exam standard bilateral Mid - Patellar Circumerential Measure ( 56 cm) Lower Extremity Functional Index Activities Today, do you or would you have any difficulty at all with: a.Any of your usual work, housework or Quite a bit of difficulty school activities b. Your usual hobbies, recreational or Extreme difficulty or unable sporting activities to perform activity c. Getting into or out of the bath No difficulty d. Walking between rooms Moderate difficulty e. Putting on your shoes or socks Extreme difficulty or unable to perform activity f. Squatting Extreme difficulty or unable to perform activity g. Lifting an object, like a bag of A little bit of difficulty groceries from the floor h. Performing light activities around A little bit of difficulty your home i. Performing heavy activities around Quite a bit of difficulty your home j. Getting into or out of a car No difficulty k. Walking 2 blocks Quite a bit of difficulty l. Walking a mile Quite a bit of difficulty m. Going up or down 10 stairs (about 1 Quite a bit of difficulty flight of stairs) n. Standing for 1 hour Extreme difficulty or unable to perform activity o. Sitting for 1 hour Extreme difficulty or unable to perform activity p. Running on even ground Extreme difficulty or unable to perform activity q. Running on uneven ground Extreme difficulty or unable to perform activity r. Making sharp turns while running fast Extreme difficulty or unable to perform activity s. Hopping Extreme difficulty or unable to perform activity t. Rolling over in bed A little bit of difficulty LEFI Score Lower Extremity Functional Index Score 24 Outpatient Therapy Assessment Impairments Problems/Impairmments Palpation Tenderness,Impaired Range of Motion,Impaired Strength,Impaired Gait Pattern ,Impaired Walking,Impaired Standing,Impaired Stair Climbing,Impaired Stepping on Uneven Surface,Impaired Squatting,Subjective C/O Pain, Impaired Self Care/Self Management Prognosis Rehab Potential Good Comment barriers to progress include elevated BMI Clinical Impression Consistent with Diagnosis Yes Short Term Goals Number of Weeks 3 Improve LEFI Score Yes: Improve score to 34 to improve overall QOL Improve Self Care/Self Management Yes Patient to be Ind w/ HEP Yes 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 6/10 or less Improve Ability to Climb Stairs Yes: 1 flight with HR with pain 6/10 or less to assist w community navigation Improve LEFI Score Yes: Improve score to 44 to improve overall QOL Decrease Subjective C/O Pain Yes: Improve pain at worst to 6/10 to improve overall QOL Outpatient Therapy Plan of Care Treatment Plan May Include Therapeutic Exercise Including Home Yes Exercise Program Manual Therapy Techniques Yes Neuromuscular Re-education Yes Therapeutic Activities to Return to Yes Previous Functional/Work Level Gait Training Yes ADL/Self Care Education Yes Dry Needling Yes Thermal Modalities Yes Electrical Stimulation Yes Ultrasound/Phonophoresis Yes Iontophoresis Yes Orthotics/Bracing/Splinting Yes Vasopneumatic Compression Pump Yes Massage Yes Eval/Re-Eval Yes Aquatic Therapy Yes Frequency Times per week 2 Duration Number of Weeks 4-6 Addendums This patient is a candidate for social No or vocational rehab? Patient/Guardian verbally acknowledges Yes understanding of treatment program and consents to further treatment? Patient/Guardian verbally acknowledges Yes understanding of diagnosis, prognosis and goals for treatment? Eval Complexity PT Charges 31112 - Moderate Complexity Shoulder/Elbow Eval Shoulder Objective Measurements Elbow Objective Measurements PHYSICIAN CERTIFICATION: I certify the specified therapy services for Jeniffer West are required, authorized, and reviewed every 30 days.
--- NOTE | 2024-03-01 15:47 | HMH.RHREAS ---
Rehab Reassessment Rehab OP Re-assessment Start: 01/27/24 08:42 Freq: Status: Active Protocol: Document 03/01/24 14:58 JASENTYREE (Rec: 03/01/24 15:46 ECTOR [id number]) E-signed By Lakisha Castillo PT Lower Extremity Functional Index Activities Today, do you or would you have any difficulty at all with: a.Any of your usual work, housework or No difficulty school activities b. Your usual hobbies, recreational or A little bit of difficulty sporting activities c. Getting into or out of the bath No difficulty d. Walking between rooms A little bit of difficulty e. Putting on your shoes or socks Moderate difficulty f. Squatting Quite a bit of difficulty g. Lifting an object, like a bag of No difficulty groceries from the floor h. Performing light activities around Moderate difficulty your home i. Performing heavy activities around Quite a bit of difficulty your home j. Getting into or out of a car Moderate difficulty k. Walking 2 blocks Extreme difficulty or unable to perform activity l. Walking a mile Extreme difficulty or unable to perform activity m. Going up or down 10 stairs (about 1 Quite a bit of difficulty flight of stairs) n. Standing for 1 hour Extreme difficulty or unable to perform activity o. Sitting for 1 hour No difficulty p. Running on even ground Extreme difficulty or unable to perform activity q. Running on uneven ground Extreme difficulty or unable to perform activity r. Making sharp turns while running fast Extreme difficulty or unable to perform activity s. Hopping Extreme difficulty or unable to perform activity t. Rolling over in bed No difficulty LEFI Score Lower Extremity Functional Index Score 35 Rehab Re-assessment Subjective Subjective Pt reports he hurt his back last week which kept him from attending his PT sessions for his L knee. Pt reports his L knee pain has greatly improved since starting PT with pain at worst as 4-5/10 described as a dull ache. Pt reports this pain usually occurs after prolonged activity at the end of the day. Pt reports improved sense of knee stability overall, denies recent falls. Pt reports continued difficulty with prolonged standing, walking, stair climbing and squatting due to knee pain. Pt reports compliance with HEP, use of a home TENS unit, and losing 30lbs which has all helped improve his pain. Objective Objective Notes L knee AROM: 0-110 L hip MMT: 4/5 grossly L knee MMT: flex/ext 4+/5 Assessment Progress Assessment Slower Than Expected Assessment Notes Pt has attended 5 PT sessions consisting of land and aquatic treatment. Pt demonstrated improved subjective report of pain and LEFS score this date compared to the initial evaluation. Pt continues to report moderate pain with prolonged standing, walking, stair climbing and squatting. Overall the pt would continue to benefit from skilled PT to further improve pain, knee ROM , LE strength, and functional activity tolerance to improve overall QOL. Patient goals met ST/3 Goals Not Met LTG Revised Goals n/a Plan Plan Continue initial POC Frequency of Therapy 2x/week Duration of therapy 4 more weeks Time and Billing Re-Eval Time 10 Re-Eval Billing Units 1 PHYSICIAN CERTIFICATION: I certify the specified therapy services for Jeniffer West are required, authorized, and reviewed every 30 days.
== END 2024-03-10 15:00 | disposition home or self-care (01) ==
LOC: PT 14:00
PROVIDERS: Visit Provider Physician Assistant
DX: M17.12 Unilateral primary osteoarthritis, left knee (principal)
CPT/HCPCS: 97010; 97014; 97110; 97113; 97163; 97164; 97530; G0283

== ENCOUNTER 2024-03-11 18:00 | Outpatient (CLI) | payer MEDICAID, SELFPAY ==
[2024-03-11 18:37] LABS: Basophils % 0.6 % (0.1-2.0); Eosinophils # 0.4 K/mm3 (0.0-0.4); Hematocrit 44.1 % (42.0-52.0); Hemoglobin 14.2 g/dL (14.1-18.0); Lymphocytes # 1.7 K/mm3 (0.7-4.5); Lymphocytes % 26.1 % (10-50); Mean Corpuscular HGB Conc 32.1 g/dL (31.8-35.4); Mean Corpuscular Hemoglobin 31.6 pg (27.0-31.2); Mean Corpuscular Volume 98.5 fl (80-94); Mean Platelet Volume 10.2 fl (7.4-10.4); Monocytes # 0.4 K/mm3 (0.1-1.0); Monocytes % 6.4 % (1.7-9.3); Neutrophils # 3.8 K/mm3 (1.8-7.8); Neutrophils % 60.9 % (37.0-80.0); Platelet Count 173 K/mm3 (142-424); Red Blood Count 4.48 M/mm3 (4.60-6.20); Red Cell Distribution Width 14.4 % (11.5-17.5); White Blood Count 6.3 K/mm3 (4.8-10.8)
[2024-03-11 18:53] LABS: Hemoglobin A1C 5.6 % (4.0-6.0)
[2024-03-11 19:20] LABS: Alanine Aminotransferase 12 U/L (12-78); Albumin Level 4.1 g/dl (3.5-5.0); Albumin/Globulin Ratio 1.6 (1.1-1.8); Alkaline Phosphatase 56 U/L (38-126); Anion Gap 13.8 mEq/L (5-15); Aspartate Amino Transferase 29 U/L (17-59); Bilirubin,Total 0.5 mg/dl (0.2-1.3); Blood Urea Nitrogen 14 mg/dl (9-20); Calcium 9.2 mg/dl (8.4-10.2); Carbon Dioxide 26 mmol/L (22.0-30.0); Chloride 105 mmol/L (98-107); Chol/HDL Ratio 3.4 (1-3.5); Cholesterol 117 mg/dl (140-200); Estimated Glomerular Filt Rate 91 ml/min (>60); GFR (African American) 110 ML/MIN (>60); Globulin 2.5 g/dL (1.3-3.2); Glucose 60 mg/dl (74-100); HDL Cholesterol 34 mg/dl (40-60); Potassium 3.8 mmoL/L (3.5-5.1); Sodium 141 mmol/L (136-145); Total Protein,Serum 6.6 g/dl (6.3-8.2); Triglycerides 140 mg/dl (30-150); VLDL Cholesterol 28 mg/dL (0-40)
[2024-03-11 19:31] LABS: Direct LDL Cholesterol 69.23 mg/dL (100-129)
[2024-03-11 19:34] LABS: 25-OH Vitamin D, Total 28.4 ng/mL (30-100)
[2024-03-11 19:53] LABS: Prostate Specific Ag Screen 0.6 ng/ml (0.0-4.0); Thyroid Stimulating Hormone 0.58 uIU/mL (0.465-4.68)
[2024-03-11 20:12] LABS: Vitamin B12 374 pg/mL (239-931)
[2024-03-18 19:45] LABS: Free Testosterone (Direct) 2.9 pg/mL (6.8-21.5); Testosterone, Total, LC/MS 146.3 ng/dL (264.0-916.0)
== END 2024-03-11 23:59 | disposition home or self-care (01) ==
LOC: LAB.DROPOF 03-12 09:07
PROVIDERS: PCP Family Medicine; Visit Provider Family Medicine
DX: R53.83 Other fatigue (principal); E55.9 Vitamin D deficiency, unspecified; Z68.43 Body mass index [BMI] 50.0-59.9, adult; E66.9 Obesity, unspecified; Z79.899 Other long term (current) drug therapy
CPT/HCPCS: 80050; 80053; 80061; 82306; 82607; 83036; 84443; 85025; G0103

== ENCOUNTER 2024-04-25 16:45 | Emergency (ER) | payer MEDICAID, SELFPAY ==
[2024-04-25 17:15] VITALS: BP 142/91; PULSE 83; RESP 21; TEMP 36.8; O2SAT 97; BMI 58.7
--- NOTE | 2024-04-25 17:57 | EXP.UTC ---
Discharge Plan Disposition Patient Disposition: Home, Self-Care Condition: Good Prescriptions Prescriptions: New methylprednisolone [Medrol (Shun)] 4 mg tablets,dose pack See Rx Instructions .ROUTE .COMPLEX 6 Days Qty: 21 0RF Rx Instructions: 4 mg orally ;Medrol dose taper shun doxycycline hyclate 100 mg capsule 100 mg PO BID Qty: 20 0RF No Action gabapentin 300 mg capsule 300 mg PO DAILY Patient Comments: TAKE 1 TABLET BY MOUTH FOUR TIMES A DAY FOR 30 DAYS hydrochlorothiazide 25 mg tablet 25 mg PO DAILY Patient Comments: TAKE 1 TABLET BY MOUTH EVERY DAY IN THE MORNING ergocalciferol (vitamin D2) 1,250 mcg (50,000 unit) capsule 1,250 mcg PO WEEKLY Patient Comments: TAKE 1 CAPSULE BY MOUTH ONCE WEEKLY benazepril 40 mg tablet 40 mg PO DAILY loratadine 10 mg tablet 10 mg PO DAILY Patient Comments: TAKE 1 TABLET BY MOUTH EVERY DAY levocetirizine 5 mg tablet 5 mg PO DAILY Patient Comments: TAKE 1 TABLET BY MOUTH EVERY DAY cholecalciferol (vitamin D3) 50 mcg (2,000 unit) capsule 50 mcg PO DAILY Patient Comments: TAKE 1 CAPSULE BY MOUTH EVERY DAY Referrals Follow up/Referrals: Barbara Franklin PA [Primary Care Provider] - See instructions Clinical Impressions Clinical Impression: Sinusitis Qualifiers: Sinusitis location: pansinusitis Chronicity: acute Recurrence: not specified as recurrent Qualified Code(s): J01.40 - Acute pansinusitis, unspecified Instructions Patient Instructions: DI for Sinusitis, Sinus Headache Discharge ED Provider: Prisca Fuller [facility] General Stated complaint: SOA,allergies Mode of Arrival: Ambulatory Source of Information: Patient Limitations: No Limitations Time Seen by Provider: 04/25/24 17:38 Description of Symptoms (Recalled from Triage Doc. by RN): PATIENT C/O NASAL CONGESTION, SOA (DUE TO THE CONGESTION), AND COUGH WITH YELLOW SPUTUM X 2-3 DAYS. PATIENT REPORTS A HISTORY OF NASAL POLYPS HEENT Symptoms (Recalled from RN notes): Yes Resp Symptoms (Recalled from RN notes): Yes Skin Symptoms (Recalled from RN notes): No MS Symptoms (Recalled from RN notes): No Functional Status (Recalled from RN notes): WNL History of Present Illness Provider Complaint: Pt reports that he has had sinus symptoms for the last 2 weeks. He reports that a week ago he went to his PCP and got a steroid shot. He states that his symptoms have only worsened and now for the past few days he has had thick yellow sputum, frontal headache and pain across his face. He states that he has nasal polyps and is to be receiving treatment from ENT on 05/03/24. Related Data Home Medications Medication Instructions Recorded Confirmed benazepril 40 mg tablet 40 mg PO DAILY 04/25/24 04/25/24 cholecalciferol (vitamin D3) 50 50 mcg PO DAILY 04/25/24 04/25/24 mcg (2,000 unit) capsule ergocalciferol (vitamin D2) 1,250 1,250 mcg PO WEEKLY 04/25/24 04/25/24 mcg (50,000 unit) capsule gabapentin 300 mg capsule 300 mg PO DAILY 04/25/24 04/25/24 hydrochlorothiazide 25 mg tablet 25 mg PO DAILY 04/25/24 04/25/24 levocetirizine 5 mg tablet 5 mg PO DAILY 04/25/24 04/25/24 loratadine 10 mg tablet 10 mg PO DAILY 04/25/24 04/25/24 Previous Rx's Medication Instructions Recorded doxycycline hyclate 100 mg capsule 100 mg PO BID #20 caps 04/25/24 methylprednisolone 4 mg tablets in See Rx Instructions .Route 04/25/24 a dose pack (Medrol (Shun)) .COMPLEX 6 days #21 tabs Allergies Allergy/AdvReac Type Severity Reaction Status Date / Time No Known Allergies Allergy Verified 04/11/24 16:14 Worker's Comp Is this a Worker's Comp case?: No [facility] Disclaimer: The information contained in this section may have been updated after the patient was seen, as this information can be updated by other users. Medical History Sinusitis Otitis media MELE (obstructive sleep apnea) Anxiety Depression Hypertension Cardiac arrhythmia Knee pain, right Neuropathy Vitamin B12 deficiency Family History Father Cancer Social History Smoking Status: Former smoker tobacco type: cigarettes packs per day: 1 alcohol intake: never substance use type: denies use current occupational status: other Travel in the last 8 weeks: None current occupation: None ROS Obtained: Yes All systems reviewed & no additional complaints except as documented Constitutional Constitutional: Reports system reviewed and no additional complaints, except as documented Eyes Eyes: Reports system reviewed and no additional complaints, except as documented ENT Ears, Nose, Mouth, and Throat: Reports system reviewed and no additional complaints, except as documented, Reports nasal congestion, Reports nasal discharge, Reports sinus pain and Reports sinus pressure Cardiovascular Cardiovascular: Reports system reviewed and no additional complaints, except as documented Respiratory Respiratory: Reports system reviewed and no additional complaints, except as documented Gastrointestinal Gastrointestingal: Reports system reviewed and no additional complaints, except as documented Genitourinary Male Genitourinary: Reports system reviewed and no additional complaints, except as documented Musculoskeletal Musculoskeletal: Reports system reviewed and no additional complaints, except as documented Integumentary/Breasts Skin/Breast: Reports system reviewed and no additional complaints, except as documented Neurologic Neurologic: Reports system reviewed and no additional complaints, except as documented Endocrine Endocrine: Reports system reviewed and no additional complaints, except as documented Hematologic/Lymphatic Henatologic/Lymphatic: Reports system reviewed and no additional complaints, except as documented Allergic/Immunologic Allergic/Immunologic: Reports system reviewed and no additional complaints, except as documented Physical Exam General General appearance: alert Comment: ill appearing. Head Head exam: atraumatic and normocephalic Eye Eye exam: Present normal appearance Expanded ENT Exam External ear exam: Present normal external inspection Nose exam: Present sinus tenderness (pansinusitis) Nasal speculum exam: Bilateral: purulent discharge and other (edematous mucosa) Mouth exam: Present normal external inspection Teeth exam: Present normal inspection Throat exam: Present normal inspection Neck Neck exam: Present normal inspection Chest Chest inspection: Present normal inspection and symmetric chest wall rise Respiratory Respiratory exam: Present normal lung sounds bilaterally Cardiovascular Cardiovascular exam: Present regular rate, normal rhythm and normal heart sounds Abdominal Exam Abdominal exam: Present soft and normal bowel sounds Extremities Exam Extremities exam: Present normal inspection Back Exam Back exam: Present normal inspection Neurological Exam Neurological exam: Present alert and oriented X3 Psychiatric Psychiatric exam: Present normal affect and normal mood Skin Skin exam: Present warm, dry and intact Lymphatic Lymphatic Findings: no adenopathy Medical Decision Making Alejandro Inquiry Pt receiving controlled substance: No Alejandro was queried for this patient: No Vital Signs: 04/25/24 17:15 Temperature 98.3 F Temperature Source Oral Pulse Rate [Right Brachial] 83 Respiratory Rate 21 Blood Pressure [Right Arm] 142/91 H Blood Pressure Mean [Right Arm] 108 Blood Pressure Source [Right Arm] Automatic Cuff Blood Pressure Position [Right Arm] Sitting 02 Sat by Pulse Oximetry 97 Oxygen Delivery Method Room Air
[2024-04-25 18:09] VITALS: BP 142/91; PULSE 83; RESP 21; TEMP 36.8; O2SAT 97
== END 2024-04-25 18:13 | disposition home or self-care (01) ==
PROVIDERS: Emergency Provider Nurse Practitioner Family; PCP Physician Assistant
DX: J01.40 Acute pansinusitis, unspecified (principal); R51.9 Headache, unspecified
CPT/HCPCS: 99212; 99214; G0463

== ENCOUNTER 2024-08-15 14:32 | Emergency (ER) | payer MEDICAID, SELFPAY ==
[2024-08-15 14:45] VITALS: BP 131/88; PULSE 79; RESP 16; TEMP 36.6; O2SAT 97; BMI 57.1
--- NOTE | 2024-08-15 14:48 | ED_ITS ---
Discharge Plan Disposition Patient Disposition: Home, Self-Care Condition: Good Prescriptions Prescriptions: New lidocaine 5 % adhesive patch,medicated 1 patch topical DAILY PRN (Reason: pain) Qty: 15 0RF Rx Instructions: leave on most painful area for up to 12 hrs then remove for 12 hours methocarbamol 500 mg tablet 500 mg PO TID PRN (Reason: muscle spasm) Qty: 12 0RF methylprednisolone [Medrol (Shun)] 4 mg tablets,dose pack See Rx Instructions .Route .COMPLEX 6 Days Qty: 21 0RF Rx Instructions: taper pack; No Action gabapentin 300 mg capsule 300 mg PO QID Qty: 120 2RF amitriptyline 25 mg tablet 25 mg PO HS Qty: 90 3RF benazepril 40 mg tablet See Rx Instructions .ROUTE .COMPLEX Qty: 30 1RF Dose Instruction: TAKE 1 TABLET BY MOUTH EVERY DAY Rx Instructions: TAKE 1 TABLET BY MOUTH EVERY DAY omeprazole 40 mg capsule,delayed release(DR/EC) See Rx Instructions .ROUTE .COMPLEX Qty: 90 1RF Dose Instruction: TAKE 1 CAPSULE BY MOUTH EVERY DAY Rx Instructions: TAKE 1 CAPSULE BY MOUTH EVERY DAY hydrochlorothiazide 25 mg tablet See Rx Instructions .ROUTE .COMPLEX Qty: 90 0RF Dose Instruction: TAKE 1 TABLET BY MOUTH EVERY DAY IN THE MORNING Rx Instructions: TAKE 1 TABLET BY MOUTH EVERY DAY IN THE MORNING ergocalciferol (vitamin D2) 1,250 mcg (50,000 unit) capsule 1,250 mcg PO WEEKLY Patient Comments: TAKE 1 CAPSULE BY MOUTH ONCE WEEKLY levocetirizine 5 mg tablet 5 mg PO DAILY Patient Comments: TAKE 1 TABLET BY MOUTH EVERY DAY cholecalciferol (vitamin D3) 50 mcg (2,000 unit) capsule 50 mcg PO DAILY Patient Comments: TAKE 1 CAPSULE BY MOUTH EVERY DAY Referrals Follow up/Referrals: Barbara Franklin PA [Primary Care Provider] - See instructions Activity Restrictions/Add. Instructions Additional Instructions/Restrictions: Start oral steriods tomorrow Use lidocaine patches as directed Take muscle relaxers as directed If you need somehting else for pain may take over the counter Motrin and/or Tylenol Follow up with your Family Doctor if no improvement or any worsening of symptoms Clinical Impressions Clinical Impression: Low back pain Qualifiers: Chronicity: unspecified Back pain laterality: right Sciatica presence: with sciatica Sciatica laterality: sciatica of right side Qualified Code(s): M54.41 - Lumbago with sciatica, right side Instructions Patient Instructions: DI for Low Back Pain, DI for Sciatica, Lidocaine Transdermal Patch Print Language Print Language: Korean Discharge ED Provider: Cami Galvez [facility] [place] HPI General Stated complaint: back pain Mode of Arrival: Ambulatory Source of Information: Patient Limitations: No Limitations Time Seen by Provider: 08/15/24 14:48 Description of Symptoms (Recalled from Triage Doc. by RN): Reports having to lift his mom off the floor 3 days ago and now his right lower back radiating down his right leg is hurting. HEENT Symptoms (Recalled from RN notes): No Resp Symptoms (Recalled from RN notes): No Skin Symptoms (Recalled from RN notes): No MS Symptoms (Recalled from RN notes): Yes Functional Status (Recalled from RN notes): wnl History of Present Illness Provider Complaint: Patient states that he has a bad back States that mother recently had surgery and she fell in the floor and he had to pick her up from the floor and felt a pull in his right lower back that is now radiating into his buttock area states feels like sciatica states pain is worse with certain movements and walking Denies loss of control of bowel or bladder Related Data Home Medications ?Medication ?Instructions ?Recorded ?Confirmed cholecalciferol (vitamin D3) 50 50 mcg PO DAILY 04/25/24 05/17/24 mcg (2,000 unit) capsule ergocalciferol (vitamin D2) 1,250 1,250 mcg PO WEEKLY 04/25/24 05/17/24 mcg (50,000 unit) capsule levocetirizine 5 mg tablet 5 mg PO DAILY 04/25/24 05/17/24 Previous Rx's ?Medication ?Instructions ?Recorded gabapentin 300 mg capsule 300 mg PO QID #120 caps 05/17/24 amitriptyline 25 mg tablet 25 mg PO HS #90 tabs 06/04/24 benazepril 40 mg tablet See Rx Instructions .Route 06/20/24 .COMPLEX #30 tabs hydrochlorothiazide 25 mg tablet See Rx Instructions .Route 06/23/24 .COMPLEX #90 tabs omeprazole 40 mg capsule,delayed See Rx Instructions .Route 06/23/24 release .COMPLEX #90 caps lidocaine 5 % topical patch 1 patch topical DAILY PRN pain #15 08/15/24 ea methocarbamol 500 mg tablet 500 mg PO TID PRN muscle spasm #12 08/15/24 tabs methylprednisolone 4 mg tablets in See Rx Instructions .Route 08/15/24 a dose pack (Medrol (Shun)) .COMPLEX 6 days #21 tabs Allergies Allergy/AdvReac Type Severity Reaction Status Date / Time No Known Allergies Allergy Verified 05/17/24 10:26 Worker's Comp Is this a Worker's Comp case?: No [facility] Disclaimer: The information contained in this section may have been updated after the patient was seen, as this information can be updated by other users. Medical History Sinusitis Otitis media MELE (obstructive sleep apnea) Anxiety Depression Hypertension Cardiac arrhythmia Knee pain, right Neuropathy Vitamin B12 deficiency Family History Father Cancer Social History Smoking Status: Former smoker tobacco type: cigarettes packs per day: 1 alcohol intake: never substance use type: denies use current occupational status: other Travel in the last 8 weeks: None current occupation: None ROS Obtained: Yes All systems reviewed & no additional complaints except as documented and Yes Systems reviewed as appropriate & no additional complaints except as documented Constitutional Constitutional: Reports system reviewed and no additional complaints, except as documented and Reports as per HPI Eyes Eyes: Reports system reviewed and no additional complaints, except as documented and Reports as per HPI ENT Ears, Nose, Mouth, and Throat: Reports system reviewed and no additional complaints, except as documented and Reports as per HPI Cardiovascular Cardiovascular: Reports system reviewed and no additional complaints, except as documented and Reports as per HPI Respiratory Respiratory: Reports system reviewed and no additional complaints, except as documented and Reports as per HPI Gastrointestinal Gastrointestingal: Reports system reviewed and no additional complaints, except as documented and as per HPI Genitourinary Male Genitourinary: Reports system reviewed and no additional complaints, except as documented and Reports as per HPI Musculoskeletal Musculoskeletal: Reports system reviewed and no additional complaints, except as documented, Reports as per HPI and Reports back pain (right lower back pain into buttock area and upper leg) Physical Exam General General appearance: alert and in no apparent distress Respiratory Respiratory exam: Present normal lung sounds bilaterally; Absent respiratory distress or wheezes Cardiovascular Cardiovascular exam: Present regular rate, normal rhythm and normal heart sounds Back Exam Back exam: Present tenderness, muscle spasm and sciatic notch tenderness (R) Back 1 view image: 2 1. reports achy like pain that radiates into buttock area and upper leg like he has had before with sciatica Denies loss of control of bowel or bladder Neurological Exam Neurological exam: Present alert, oriented X3 and normal gait Medical Decision Making Medical Records Screening: Per USPSTF and CDC recommendations, given the prevalence of disease in our region, it is our hospital?s policy to screen for HIV and viral Hepatitis for all patients aged 18 and over and those with ongoing risk factors. Alejandro Inquiry Pt receiving controlled substance: No Alejandro was queried for this patient: No Vital Signs: 08/15/24 14:45 Temperature 97.9 F Temperature Source Oral Pulse Rate [Radial] 79 Respiratory Rate 16 Blood Pressure [Right Arm] 131/88 Blood Pressure Mean [Right Arm] 102 Blood Pressure Source [Right Arm] Automatic Cuff Blood Pressure Position [Right Arm] Sitting 02 Sat by Pulse Oximetry 97 Oxygen Delivery Method Room Air Medical Decision Narrative: Patient states no longer takes diclofenac, discussed xray declined at this time
[2024-08-15] MEDS: METHYLPREDNISOLONE SOD SUCC 125MG VIAL 125 MG IM (14:58)
[2024-08-15] MEDS: KETOROLAC 60MG/2ML VIAL 60 MG IM (14:59)
[2024-08-15 15:17] VITALS: BP 131/88; PULSE 79; RESP 16; TEMP 36.6; O2SAT 97
== END 2024-08-15 15:18 | disposition home or self-care (01) ==
PROVIDERS: Emergency Provider Nurse Practitioner; PCP Physician Assistant
DX: M54.41 Lumbago with sciatica, right side (principal)
CPT/HCPCS: 99213; G0381; J1885; J2919

== ENCOUNTER 2024-09-09 18:42 | Emergency (ER) | payer MEDICAID, SELFPAY ==
[2024-09-09 18:43] VITALS: BP 135/79; PULSE 85; RESP 13; TEMP 36.6; O2SAT 96; BMI 55.6
--- NOTE | 2024-09-09 19:05 | XR_ITS ---
PROCEDURE INFORMATION: Exam: XR Left Foot Exam date and time: 09/09/2024 7:00 PM Age: 44 years old Clinical indication: Pain; Foot; Left; Additional info: Pain ongoing 2 months TECHNIQUE: Imaging protocol: Radiologic exam of the left foot. Views: 3 or more views. COMPARISON: No relevant prior studies available. FINDINGS: Bones/joints: No acute fracture. No dislocation. Posterior and plantar calcaneal enthesophytes. Soft tissues: Unremarkable. IMPRESSION: No fracture. If pain persists, consider nonemergent MRI for further evaluation.
--- NOTE | 2024-09-09 19:05 | XR_ITS ---
PROCEDURE INFORMATION: Exam: XR Left Ankle Exam date and time: 09/09/2024 7:02 PM Age: 44 years old Clinical indication: Pain; Ankle; Left; Additional info: Pain ongoing 2 months TECHNIQUE: Imaging protocol: Radiologic exam of the left ankle. Views: 3 or more views. COMPARISON: CR Foot L 09/09/2024 7:00 PM FINDINGS: Bones/joints: No acute fracture. Small ossicle along lateral malleolus. No dislocation. Posterior and plantar calcaneal enthesophytes. No significant joint effusion. Soft tissues: Unremarkable. IMPRESSION: No fracture. If pain persists, consider nonemergent MRI for further evaluation.
--- NOTE | 2024-09-09 19:20 | ED_ITS ---
<Statement entered by Lakisha Fleming DO - 09/09/24 20:08> I was consulted by the KEYSHAWN, and we discussed the complexity of the problems being addressed. I approved the treatment and management plan for this patient's care in the emergency department, thus performing a substantive portion of the medical decision making. Lakisha Fleming DO Discharge Plan Disposition Patient Disposition: Home, Self-Care Condition: Good Prescriptions Prescriptions: No Action gabapentin 300 mg capsule 300 mg PO QID Qty: 120 2RF amitriptyline 25 mg tablet 25 mg PO HS Qty: 90 3RF omeprazole 40 mg capsule,delayed release(DR/EC) See Rx Instructions .ROUTE .COMPLEX Qty: 90 1RF Dose Instruction: TAKE 1 CAPSULE BY MOUTH EVERY DAY Rx Instructions: TAKE 1 CAPSULE BY MOUTH EVERY DAY hydrochlorothiazide 25 mg tablet See Rx Instructions .ROUTE .COMPLEX Qty: 90 0RF Dose Instruction: TAKE 1 TABLET BY MOUTH EVERY DAY IN THE MORNING Rx Instructions: TAKE 1 TABLET BY MOUTH EVERY DAY IN THE MORNING benazepril 40 mg tablet See Rx Instructions .ROUTE .COMPLEX Qty: 30 1RF Dose Instruction: TAKE 1 TABLET BY MOUTH EVERY DAY Rx Instructions: TAKE 1 TABLET BY MOUTH EVERY DAY ergocalciferol (vitamin D2) 1,250 mcg (50,000 unit) capsule 1,250 mcg PO WEEKLY Patient Comments: TAKE 1 CAPSULE BY MOUTH ONCE WEEKLY levocetirizine 5 mg tablet 5 mg PO DAILY Patient Comments: TAKE 1 TABLET BY MOUTH EVERY DAY cholecalciferol (vitamin D3) 50 mcg (2,000 unit) capsule 50 mcg PO DAILY Patient Comments: TAKE 1 CAPSULE BY MOUTH EVERY DAY lidocaine 5 % adhesive patch,medicated 1 patch topical DAILY PRN (Reason: pain) Qty: 15 0RF Rx Instructions: leave on most painful area for up to 12 hrs then remove for 12 hours methocarbamol 500 mg tablet 500 mg PO TID PRN (Reason: muscle spasm) Qty: 12 0RF methylprednisolone [Medrol (Shun)] 4 mg tablets,dose pack See Rx Instructions .Route .COMPLEX 6 Days Qty: 21 0RF Rx Instructions: taper pack; Referrals Follow up/Referrals: Barbara Franklin PA [Primary Care Provider] - See instructions Deja Rondon DPM [Staff Physician] - See instructions Activity Restrictions/Add. Instructions Additional Instructions/Restrictions: Please use ice or heat every night for symptoms along with continuing to take Tylenol alternating every 4 hours with Motrin. You may try Epsom salt soaks as well. I have referred you to podiatry. Please call and make an appointment on Thursday and let them know that you were seen in the ER. Follow-up with your PCP for no improvement or worsening signs or symptoms or return to the ER as needed Clinical Impressions Clinical Impression: Chronic foot pain Print Language Print Language: Kinyarwanda Discharge ED Provider: Lakisha Fleming General Adult HPI General Chief complaint: PAIN Stated complaint: heel pain Left Time Seen by Provider: 09/09/24 18:58 Mode of Arrival: Ambulatory Source of Information: Patient Limitations: No Limitations Description of Symptoms (Recalled from ER Triage Doc. by RN): pt presents to ED with c/o left ankle/foot pain. pt reports that pain has been ongoing for two months but pt has been unable to get into his pcp until recently. pt has outpt order form for xray of left foot. pt reports that he went to outpt registration and no one was there, so he come to ED to get xray and see a doctor for recommendations on why his foot/ankle is hurting. History of Present Illness HPI narrative: Patient presents for evaluation of left foot and ankle pain. Patient gives a history of 2 months of posterior left heel pain. He denies any trauma. He states that it hurts all the time worse with sitting for prolonged period of time and then trying to walk. Denies any numbness or tingling swelling fever chills. He does have peripheral neuropathy and morbid obesity. Related Data Home Medications ?Medication ?Instructions ?Recorded ?Confirmed cholecalciferol (vitamin D3) 50 50 mcg PO DAILY 04/25/24 05/17/24 mcg (2,000 unit) capsule ergocalciferol (vitamin D2) 1,250 1,250 mcg PO WEEKLY 04/25/24 05/17/24 mcg (50,000 unit) capsule levocetirizine 5 mg tablet 5 mg PO DAILY 04/25/24 05/17/24 Previous Rx's ?Medication ?Instructions ?Recorded gabapentin 300 mg capsule 300 mg PO QID #120 caps 05/17/24 amitriptyline 25 mg tablet 25 mg PO HS #90 tabs 06/04/24 hydrochlorothiazide 25 mg tablet See Rx Instructions .Route 06/23/24 .COMPLEX #90 tabs omeprazole 40 mg capsule,delayed See Rx Instructions .Route 06/23/24 release .COMPLEX #90 caps lidocaine 5 % topical patch 1 patch topical DAILY PRN pain #15 08/15/24 ea methocarbamol 500 mg tablet 500 mg PO TID PRN muscle spasm #12 08/15/24 tabs methylprednisolone 4 mg tablets in See Rx Instructions .Route 08/15/24 a dose pack (Medrol (Shun)) .COMPLEX 6 days #21 tabs benazepril 40 mg tablet See Rx Instructions .Route 08/17/24 .COMPLEX #30 tabs Allergies Allergy/AdvReac Type Severity Reaction Status Date / Time No Known Allergies Allergy Verified 05/17/24 10:26 [facility] Disclaimer: The information contained in this section may have been updated after the patient was seen, as this information can be updated by other users. Medical History Sinusitis Otitis media MELE (obstructive sleep apnea) Anxiety Depression Hypertension Cardiac arrhythmia Knee pain, right Neuropathy Vitamin B12 deficiency Family History Father Cancer Social History Smoking Status: Never smoker alcohol intake: never substance use type: denies use current occupational status: other Travel in the last 8 weeks: None current occupation: None Other Medical History Have you received the Flu Vaccine for this season: Yes Have you received the Pneumonia Vaccine: Yes ROS Obtained: Yes Systems reviewed as appropriate & no additional complaints except as documented Physical Exam General General appearance: alert and in no apparent distress Respiratory Respiratory exam: Present normal lung sounds bilaterally Cardiovascular Cardiovascular exam: Present regular rate and +S2 Neurological Exam Neurological exam: Present alert Medical Decision Making Medical Records Medical records reviewed: Yes I reviewed the patient's medical records. Screening: Per USPSTF and CDC recommendations, given the prevalence of disease in our region, it is our hospital?s policy to screen for HIV and viral Hepatitis for all patients aged 18 and over and those with ongoing risk factors. Alejandro Inquiry Pt receiving controlled substance: No Vital Signs: 09/09/24 18:43 Temperature 97.9 F Temperature Source Oral Pulse Rate [Left Radial] 85 Respiratory Rate 13 Blood Pressure [Right Arm] 135/79 Blood Pressure Mean [Right Arm] 97 02 Sat by Pulse Oximetry 96 Oxygen Delivery Method Room Air Orders (Tests/Meds): ED MEDICATIONS Discontinued Medications Generic Name Dose Route Start Last Admin Trade Name Irineo PRN Reason Stop Dose Admin Acetaminophen 1,000 mg 09/09/24 19:43 Acetaminophen 500mg Tab PO 09/09/24 19:44 ONCE ONE Ibuprofen 800 mg 09/09/24 19:43 Ibuprofen 400 Mg Tablet PO 09/09/24 19:44 ONCE ONE ORDERS Category Date Time Status XR ankle LT min 3V Stat Exams 09/09/24 19:05 Completed XR foot LT min 3V Stat Exams 09/09/24 19:05 Completed HIV (1&2) Antibody Rapid Stat Lab 09/09/24 19:04 Ordered Hep C Ab with Reflex to RNA Stat Lab 09/09/24 19:04 Ordered Medical Decision Narrative: In summary patient is a 4-year-old male who presents to the emergency department for evaluation of right heel pain. Patient is hemodynamically stable upon arrival, afebrile. Physical exam is remarkable for tenderness to palpation along the plantar surface of the left heel, around the Achilles insertion at the calcaneus, and posteriorly to the bilateral malleoli without bony deformity noted on exam. Differential diagnosis includes tendinitis versus ligamentous injury versus peripheral neuropathy etc. Initial workup will be conducted with plain film x-rays.. Initial interventions include Tylenol ibuprofen. Initial workup reviewed by me shows no acute bony injury via my informal interpretation. Given the chronicity and no evidence of bony abnormalities acutely patient is appropriate for discharge with referral to podiatry for ongoing management and treatment. Critical Care Critical Care Time Critical Care Time: No
[2024-09-09] MEDS: ACETAMINOPHEN 500MG TAB 1000 MG PO (20:15)
[2024-09-09] MEDS: IBUPROFEN 400 MG TABLET 800 MG PO (20:15)
[2024-09-09 20:16] VITALS: BP 145/85; PULSE 82; RESP 16; TEMP 36.6; O2SAT 98
== END 2024-09-09 20:17 | disposition home or self-care (01) ==
PROVIDERS: Emergency Provider Emergency Medicine; PCP Physician Assistant
DX: M79.672 Pain in left foot (principal); M25.572 Pain in left ankle and joints of left foot
CPT/HCPCS: 73610; 73630; 99283

== ENCOUNTER 2025-03-29 18:13 | Emergency (ER) | payer MEDICAID, SELFPAY ==
[2025-03-29 18:24] VITALS: BP 187/116; PULSE 85; RESP 20; TEMP 36.8; O2SAT 97; BMI 55.7
--- NOTE | 2025-03-29 18:28 | XR_ITS ---
PROCEDURE INFORMATION: Exam: XR Right Knee Exam date and time: 03/29/2025 7:06 PM Age: 45 years old Clinical indication: Pain; Knee; Right; Additional info: Right knee pain no trauma TECHNIQUE: Imaging protocol: Radiologic exam of the right knee. Views: 3 views. COMPARISON: CR XR KNEE RT 3V 08/20/2023 8:33 AM FINDINGS: Bones/joints: Moderate osteophytosis and degenerative changes involve the three compartments of the right knee. No evidence of acute osseous abnormality. Soft tissues: Normal. IMPRESSION: 1. Moderate osteophytosis and degenerative changes involve the three compartments of the right knee. 2. No evidence of acute osseous abnormality.
--- NOTE | 2025-03-29 18:28 | XR_ITS ---
PROCEDURE INFORMATION: Exam: XR Right Tibia and Fibula Exam date and time: 03/29/2025 7:06 PM Age: 45 years old Clinical indication: Pain; Knee; Right; Additional info: Right leg pain no trauma TECHNIQUE: Imaging protocol: Radiologic exam of the right tibia and fibula. Views: 2 views. COMPARISON: CR XR TIBIA FIBULA RT 2V 03/29/2025 7:06 PM FINDINGS: Bones/joints: Moderate osteophytosis and degenerative changes involve the 3 compartments of the right knee. No evidence of acute osseous abnormality. Soft tissues: Normal. IMPRESSION: 1. Moderate osteophytosis and degenerative changes involve the 3 compartments of the right knee. 2. No evidence of acute osseous abnormality.
--- OUTSIDE RECORDS SUMMARY | 2025-03-29 18:33 | XMS_ITS | Data Portability ---
Author Organization [facility] Address [address] [place] [id number] Assessment No assessment recorded. Plan of Treatment Reminders Order Date Submit Date Provider Last Modified By Organization Details Last Modified Time Details Appointments OV EST 15 2024 01:45P M Pato Gomez Jr, MD Not available Not available Not available Lab None recorded. Referral None recorded. Procedures None recorded. Surgeries None recorded. Imaging None recorded. Medication Orders Xyosted 75 mg/0.5 mL subcutane ous auto-inje ctor 2024 025 [id number], [address] [place], [address], 11/18/2024 12:54:11 Patient TargetsNo targets recorded. Patient InstructionsNo instructions recorded. Reason for Referral None Reported. Problems Name Problem SNOMED Code Status Onset Date Resolution Date Notes Provider Name and Address Organization Details Recorded Time Hypertensive disorder 90224594 Active [address] [facility] [facility] [place] 5 10:08:56 Seasonal allergy 091644216 Active 2024 Eloy cain, [facility] [place] 5 10:09:02 Sleep apnea 30536673 Active 2024 Floridalmaale Matthews ant, [facility] [place] 5 10:09:10 Arthritis 0937416 Active [address] [facility] [place] 5 10:09:15 Problem Notes None recorded. Medical Equipment None Reported. Allergies No known drug allergies Medications Name Sig Start Date Stop Date Status Note LastModified by Organization Details LastModified Time Xyosted 75 mg/0.5 mL subcutaneous auto-injecto r Inject 0.5 mL every week by subcutaneou s route for 28 days. 2024 active Not Available Not Available Not Avai lable Vitals Date Recorded Body height Body mass index (BMI) Body weight Body temperature Provider Name and Address Organization Details Last Updated DateTime 11/18/2024 177.8 cm 57.4 kg/m2 859919.95 g 98.5 [degF] Eloy Matthews [facility] [place] 11/18/2024 10:08:34 Social History None recorded. Functional Status Question Answer Note LastModified by Organizat ion Details LastModified Time Do you or have you ever used any other forms of tobacco or nicotine? Yes [email or web address] Information not available 11/18/2024 What is your level of alcohol consumption? None [email or web address] Information not available 11/18/2024 Do you or have you ever used smokeless tobacco? Currently chews tobacco Information not available 11/18/2024 Mental Status None recorded. Family History Relationship Description Onset Age of this Age Resolved Age Notes LastModified by Organization Details LastModified Time Mother No current problems or disability [email or web address] Not available 11/18 10:09:22 Father Malignant neoplastic disease DEC [email or web address] Not available 2024 10:09:38 Medical History No medical history recorded. 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 We discussed treatment options today. Will xyosted. Health Concerns Section Related Observation LastModified by Organization Detai ls LastModified Time None Recorded Concern Status LastModified by Organization Details LastModified Time None Recorded Advance Directives Directive None Recorded Payers Insurance Date Sequence Insurance Name Policy Number Policy Singleton Covered Member ID Singleton Member ID Guarantor Name 03/28/2025 1 [facility] (MEDICAID H[facility]) Currency Brett [id number] [employer] [place] Notes Date Note Type Note Provider Name and Address Organization Details Recorded Time 11/18/2024 text/html 44 yo male referred for low T. He c/o losing strength and decreased energy levels. T levels on 03/2024 were 146/2.9. Repeat levels were 227/5.2 on 08/2024. Pt denies CAD or blood clots. He does have sleep apnea. He denies any LUTS. He states his libido is ok. He denies ED. PCP notes reviewed from 09/29/2024. Pato Gomez Jr, MD [address] [place] [address], [address], [place], [address], [facility] [place] [facility] [place] 12/18/2024 23:57:36
[2025-03-29] MEDS: DEXAMETHASONE 4MG/ML 1ML VIAL 10 MG IM (18:34)
[2025-03-29] MEDS: KETOROLAC 30MG/ML VIAL 15 MG IM (18:34)
--- NOTE | 2025-03-29 18:46 | ED_ITS ---
<Statement entered by Lakisha Fleming DO - 03/29/25 23:48> I was consulted by the KEYSHAWN, and we discussed the complexity of the problems being addressed. I approved the treatment and management plan for this patient's care in the emergency department, thus performing a substantive portion of the medical decision making. I personally performed DVT ultrasound with the KEYSHAWN, which was negative, however is a very limited study given the patient's body habitus. I feel he would benefit from formal DVT ultrasound, so I did provide him with an outpatient order for this and instructions on doing so. He states that he thinks the pain is from hanging his legs over the edge of the bed all the time, so advised that he stop doing that. I independently interpreted x-ray prior to radiology read and noted that the patient had arthritis but no acute fracture. Ultimately, it is felt that he is appropriate for discharge home with plan for outpatient follow-up with orthopedics for leg pain as well as outpatient DVT ultrasound. Strict return precautions given Lakisha Fleming DO Discharge Plan Disposition Chief Complaint: Extremity Injury, Lower Prescriptions Prescriptions: No Action hydrocortisone [Proctosol HC] 2.5 % cream with perineal applicator 1 applic HI QD-BID PRN (Reason: hemorrhoids) Qty: 30 0RF gabapentin 300 mg capsule 300 mg PO QID Qty: 120 2RF amitriptyline 25 mg tablet 25 mg PO HS Qty: 90 3RF omeprazole 40 mg capsule,delayed release(DR/EC) See Rx Instructions .ROUTE .COMPLEX Qty: 90 1RF Dose Instruction: TAKE 1 CAPSULE BY MOUTH EVERY DAY Rx Instructions: TAKE 1 CAPSULE BY MOUTH EVERY DAY hydrochlorothiazide 25 mg tablet See Rx Instructions .ROUTE .COMPLEX Qty: 90 0RF Dose Instruction: TAKE 1 TABLET BY MOUTH EVERY DAY IN THE MORNING Rx Instructions: TAKE 1 TABLET BY MOUTH EVERY DAY IN THE MORNING benazepril 40 mg tablet See Rx Instructions .ROUTE .COMPLEX Qty: 30 1RF Dose Instruction: TAKE 1 TABLET BY MOUTH EVERY DAY Rx Instructions: TAKE 1 TABLET BY MOUTH EVERY DAY ergocalciferol (vitamin D2) 1,250 mcg (50,000 unit) capsule 1,250 mcg PO WEEKLY Patient Comments: TAKE 1 CAPSULE BY MOUTH ONCE WEEKLY levocetirizine 5 mg tablet 5 mg PO DAILY Patient Comments: TAKE 1 TABLET BY MOUTH EVERY DAY cholecalciferol (vitamin D3) 50 mcg (2,000 unit) capsule 50 mcg PO DAILY Patient Comments: TAKE 1 CAPSULE BY MOUTH EVERY DAY lidocaine 5 % adhesive patch,medicated 1 patch topical DAILY PRN (Reason: pain) Qty: 15 0RF Rx Instructions: leave on most painful area for up to 12 hrs then remove for 12 hours methocarbamol 500 mg tablet 500 mg PO TID PRN (Reason: muscle spasm) Qty: 12 0RF methylprednisolone [Medrol (Shun)] 4 mg tablets,dose pack See Rx Instructions .Route .COMPLEX 6 Days Qty: 21 0RF Rx Instructions: taper pack; Referrals Follow up/Referrals: Barbara Franklin PA [Primary Care Provider] - See instructions Print Language Print Language: Tristanian Discharge ED Provider: Lakisha Fleming General Adult HPI General Chief complaint: Extremity Injury, Lower Stated complaint: Issues with R Knee Time Seen by Provider: 03/29/25 18:21 Mode of Arrival: Wheelchair Source of Information: Patient Description of Symptoms (Recalled from ER Triage Doc. by RN): PT IS HERE FOR RIGHT KNEE PAIN X 3 DAYS, NO FALL OR TRAUMA, PAIN MAINLY IN THE LATERAL SIDE History of Present Illness HPI narrative: 45-year-old male presents the emergency department with right knee pain and swelling for the last 3 days, patient states he has chronic bilateral knee pain, has been seen by orthopedics in the past for it, there is no fall or trauma, patient's pain is located to the lateral aspect of the right knee, patient has difficulty with flexion, no difficulty with extension, patient had negative MRI of the knee performed several years ago, which showed some potential ligamentous injuries, denies any fever chills chest pain shortness of breath, denies any nausea vomiting constipation diarrhea no abdominal pain, urinary type symptomatology, denies any upper or lower extremity weakness, denies any radicular type symptomatology, denies any numbness or tingling, no urinary bladder or bowel dysfunction, patient is a former smoker, no alcohol no drug use, other past medical history consistent with ventral hernia, osteoarthritis of bilateral knees, chronic lumbar spine pain/degenerative disc disease of the lumbar spine, insomnia, MELE, anxiety/depression, CHF, hypertension, neuropathy. Initial triage vitals unremarkable. Onset (ago): day(s) Related Data Home Medications ?Medication ?Instructions ?Recorded ?Confirmed cholecalciferol (vitamin D3) 50 50 mcg PO DAILY 04/25/24 09/28/24 mcg (2,000 unit) capsule ergocalciferol (vitamin D2) 1,250 1,250 mcg PO WEEKLY 04/25/24 09/28/24 mcg (50,000 unit) capsule levocetirizine 5 mg tablet 5 mg PO DAILY 04/25/24 09/28/24 Previous Rx's ?Medication ?Instructions ?Recorded gabapentin 300 mg capsule 300 mg PO QID #120 caps 05/17/24 amitriptyline 25 mg tablet 25 mg PO HS #90 tabs 06/04/24 hydrochlorothiazide 25 mg tablet See Rx Instructions .Route 06/23/24 .COMPLEX #90 tabs omeprazole 40 mg capsule,delayed See Rx Instructions .Route 06/23/24 release .COMPLEX #90 caps lidocaine 5 % topical patch 1 patch topical DAILY PRN pain #15 08/15/24 ea methocarbamol 500 mg tablet 500 mg PO TID PRN muscle spasm #12 08/15/24 tabs methylprednisolone 4 mg tablets in See Rx Instructions .Route 08/15/24 a dose pack (Medrol (Shun)) .COMPLEX 6 days #21 tabs benazepril 40 mg tablet See Rx Instructions .Route 08/17/24 .COMPLEX #30 tabs hydrocortisone 2.5 % topical cream 1 applic HI QD-BID PRN hemorrhoids 10/12/24 with perineal applicator #30 grams (Proctosol HC) Allergies Allergy/AdvReac Type Severity Reaction Status Date / Time No Known Allergies Allergy Verified 09/28/24 13:08 [facility] Disclaimer: The information contained in this section may have been updated after the patient was seen, as this information can be updated by other users. Medical History Sinusitis Otitis media MELE (obstructive sleep apnea) Anxiety Depression Hypertension Cardiac arrhythmia Knee pain, right Neuropathy Vitamin B12 deficiency Family History Father Cancer Social History Smoking Status: Never smoker alcohol intake: never substance use type: denies use current occupational status: other Travel in the last 8 weeks?: None current occupation: None Have you lived/traveled outside [place] in past 30 days?: No Contact w/someone who lives/traveled outside US past 30 days?: No Exposure to someone with infectious disease in past 14 days?: No Do you have a fever (greater than 100.4 F or 38 C)?: No Have you tested positive for COVID-19?: No Exposed to someone with COVID-19 in past 14 days?: No Do you have a sore throat?: No Do you have a cough?: No Do you have any weakness?: No Do you have any diarrhea?: No Are you experiencing any unusual bleeding?: No Do you have any muscle aches/pain?: No Do you have any abdominal pain?: No Are you experiencing loss of taste or smell?: No Other Medical History Have you received the Flu Vaccine for this season: Yes Have you received the Pneumonia Vaccine: Yes ROS Obtained: Yes All systems reviewed & no additional complaints except as documented Physical Exam General General appearance: alert and in no apparent distress Head Head exam: atraumatic and normocephalic Eye Eye exam: Present PERRL and EOMI ENT ENT exam: Present mucous membranes moist Neck Neck exam: Present normal inspection Chest Chest inspection: Present normal inspection and symmetric chest wall rise Respiratory Respiratory exam: Present normal lung sounds bilaterally; Absent respiratory distress Cardiovascular Cardiovascular exam: Present regular rate and normal rhythm Abdominal Exam Abdominal exam: Present soft; Absent tenderness Extremities Exam Extremities exam: Present normal inspection, tenderness, joint swelling and other (Mild suprapatellar joint effusion noted, no midline joint effusion, patient has some difficulty with flexion, no difficulty with extension, some mild pain palpation to the lateral aspect of the knee, patella is mobile, otherwise neurovascularly intact, strength in the right lower extremity); Absent full ROM Neurological Exam Neurological exam: Present alert and oriented X3 Psychiatric Psychiatric exam: Present normal affect Skin Skin exam: Present warm and dry Medical Decision Making Medical Records Medical records reviewed: Yes I reviewed the patient's medical records. Screening: Per USPSTF and CDC recommendations, given the prevalence of disease in our region, it is our hospital?s policy to screen for HIV and viral Hepatitis for all patients aged 18 and over and those with ongoing risk factors. Alejandro Inquiry Pt receiving controlled substance: No Alejandro was queried for this patient: No Vital Signs: 03/29/25 18:24 Temperature 98.2 F Temperature Source Oral Pulse Rate [Left Radial] 85 Respiratory Rate 20 Blood Pressure [Right Arm] 187/116 H Blood Pressure Mean [Right Arm] 139 02 Sat by Pulse Oximetry 97 Oxygen Delivery Method Room Air Orders (Tests/Meds): ED MEDICATIONS Discontinued Medications Generic Name Dose Route Start Last Admin Trade Name Irineo PRN Reason Stop Dose Admin Dexamethasone Sodium Phosphate 10 mg 03/29/25 18:29 03/29/25 18:34 Dexamethasone 4mg/Ml 1ml Vial IM 03/29/25 18:30 10 mg ONCE ONE Administration Ketorolac Tromethamine 15 mg 03/29/25 18:29 03/29/25 18:34 Ketorolac 30mg/Ml Vial IM 03/29/25 18:30 15 mg ONCE ONE Administration ORDERS Category Date Time Status POCUS Point of Care (ER Only) Stat Exams 03/29/25 18:27 Ordered XR knee RT 3V Stat Exams 03/29/25 18:28 Ordered XR tibia fibula RT 2V Stat Exams 03/29/25 18:28 Ordered Medical Decision Narrative: 45-year-old male presents emerged part with right knee pain no injury no trauma, differential diagnose include but not limited to osteoarthritis of the knee, DVT, knee strain/sprain, ligamentous injury, knee fracture, tib-fib fracture, patella tendinopathy, among others. Will obtain POCUS ultrasound, x-ray of the knee on the right, x-ray of the tib- fib on the right, will give 10 mg IM dexamethasone and 15 mg IM Toradol for symptomatic relief. I along with the attending physician performed bedside POCUS rule out DVT ultrasound, see ultrasound Tatian below for full details, technically adequate study, somewhat limited due to body habitus but negative DVT ultrasound the right lower extremity. Limited DVT ultrasound Indication: Right knee pain and swelling Limited compression ultrasonography of the [RIGHT ] [lower extremity] was performed to evaluate for non-compressibility of the deep veins in the patient. The ultrasound was performed with the following indications, as noted in the H&P: [Leg pain:] [R] Identified structures: [RIGHT ] [common femoral vein, femoral vein, popliteal vein were examined.] Findings: Lower Extremity: Right CFV: [Good compressibility, but somewhat limited due to body habitus] Right FV: [Good compressibility, somewhat limited due to body habitus] Right Popliteal vein: [Good compressibility] Impression: [Normal DVT ultrasound] Images [were saved] to permanent archive The study [was] technically adequate, but somewhat limited due to body habitus CPT: 53612-05-VM [id number] 52308-57 (complete right lower extremity study) This study was performed by me, and I personally interpreted all images/videos. Based on my clinical judgement, these images were [adequate] and [did not] necessitate further imaging. I discussed patient case with attending Dr. Fleming at shift change, she will be assuming the patient's care/workup, disposition is pending knee radiographs, most likely DC follow-up with orthopedic physician Critical Care Critical Care Time Critical Care Time: No
[2025-03-29 19:00] VITALS: BP 127/84
[2025-03-29 20:00] VITALS: BP 142/97
[2025-03-29 20:55] VITALS: BP 142/97; PULSE 75; RESP 16; TEMP 36.7; O2SAT 97
== END 2025-03-29 20:57 | disposition home or self-care (01) ==
PROVIDERS: Emergency Provider Emergency Medicine; PCP Physician Assistant
DX: M25.561 Pain in right knee (principal)
CPT/HCPCS: 73562; 73590; 96372; 99284; J1100; J1885

== ENCOUNTER → 2025-07-19 19:53 | Outpatient (CLI) | payer MEDICAID, SELFPAY ==
--- OUTSIDE RECORDS SUMMARY | 2025-07-19 19:57 | XMS_ITS | Clinical Summary ---
Author Organization Healthcare Address [address] 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 5 Active gabapentin (Neurontin) 300 MG capsule Take 300 mg by mouth 3 (three) times a day. 1 Active EPINEPHrine (Epipen) 0.3 MG/0.3ML injection syringe See administration instructions. 1 Active omeprazole (PriLOSEC) [address] capsule 5 Active PEG 3350 17 GM/SCOOP powder 1 (one) time each day. use as directed 1 Active fluticasone (Flonase) 50 MCG/ACT nasal sprayIndicatio ns:Chronic maxillary sinusitis,Talent Recruiter taz ethmoidal sinusitis,Talent Recruiter taz sphenoidal sinusitis,Talent Recruiter taz frontal sinusitis,Nasa l polyp Administer 2 sprays into each nostril 1 (one) time each day. Shake gently. Before first use, prime pump. After use, clean tip and replace cap. 16 g 11 2 Active Active Problems No known active problems Family History Medical History Relation Name Comments Cancer Father Hypertension Mother Relation Name Status Comments Father Mother Social History Tobacco Use Types Packs/Day Years Used Date Smoking Tobacco: Former Cigarettes Q uit: 08/21/2021 Smokeless Tobacco: Never Tobacco Cessation:Counseling Given: No Alcohol Use Standard Drinks/Week Comments Not Currently 0 (1 standard drink = 0.6 oz pur e alcohol) PHQ-2 Answer Date Recorded Patient Health Questionnaire-2 Score 0 09/11/2021 Sex and Gender Information Value Date Recorded Sex Assigned at Not on file Legal Sex Male 7:28 PM EDT Gender Identity Not on file Sexual Orientation Not on file Last Filed Vital Signs Vital Sign Reading Time Taken Comments Blood Pressure 176/124 11/14/2021 10:43 AM EST Pulse 90 11/14/2021 10:43 AM EST Temperature 35.5 C (95.9 F) 09/11/2021 9:22 AM EDT Respiratory Rate 19 07/29/2021 11:20 PM EDT Oxygen Saturation 97% 07/29/2021 11:20 PM EDT Inhaled Oxygen Concentration - - Weight 180 kg (397 lb) 11/14/2021 10:43 AM EST Height 180.3 cm (5' 11 ) 11/14/2021 10:43 AM EST Body Mass Index 55.37 11/14/2021 10:43 AM EST Plan of Treatment Health Maintenance Due Date Last Done Comments [facility]-Depression Screening 1978 [facility]-/Child/Adol SDOH Screenings 1978 [facility]- SDOH Screenings 1996 [facility]-Adult SDOH Screenings 1996 [facility]-Hepatitis B Vaccines (1 of 3 - 19+ 3-dose series) 1997 CT Colonography 2023 Colonoscopy 2023 FIT-DNA 2023 FIT 2023 FOBT 2023 Sigmoidoscopy 2023 [facility]-Colorectal Cancer Screening 2023 [id number] Vaccine (2 - 2024- season) 2025 06/05/2021 [facility]-Influenza Vaccine (#1) 07/10/202508/19, 09/09/2020, 08/20/2019, Additional history exists [facility]-DTaP,Tdap,and Td Vaccines (2 - Td or Tdap) 09/17/2026 09/17/2016 [facility]-Zoster Vaccines (1 of 2) 2028 HPV Vaccines Aged Out No longer eligi ble based on patient's age to complete this topic [facility]-HIB Vaccines Aged Out No longer e ligible based on patient's age to complete this topic [facility]-Hepatitis A Vaccines Aged Out No longer eligible based on patient's age to complete this topic [facility]-IPV Vaccines Aged Out No longer e ligible based on patient's age to complete this topic [facility]-Pneumococcal Vaccine: Pediatrics (0 to 5 Years) and At-Risk Patients (6 to 49 Years) Aged Out No longer eligible based on patient's age to complete this topic [facility]-Rotavirus Vaccines Aged Out No lo nger eligible based on patient's age to complete this topic Insurance MEDICAID Care Teams Fur Remodeler Relationship Specialty Start Date End Date Malik Solitario MD [address] [place] [id number] PCP - General 03/22/21
== END ==
LOC: SL 19:55
PROVIDERS: PCP Physician Assistant; Visit Provider Physician Assistant
DX: G47.33 Obstructive sleep apnea (adult) (pediatric) (principal)
CPT/HCPCS: 95810